=== PATIENT | female | born 1935 | race African-American/Black ===

== ENCOUNTER 2017-08-20 04:17 | Observation (INO) | payer MEDICARE, BC ==
[2017-08-20 04:58] LABS: #Lymphocytes 2.4 thou/uL (1.20-3.40); #Monocytes 0.7 thou/uL (0.11-0.59); #Neutrophils 5.3 thou/uL (1.40-6.50); %Basophils 0.2 % (0.0-1.0); %Eosinophils 0.5 % (0.0-10.0); %Lymphocytes 27.9 % (21.0-51.0); %Monocytes 8.7 % (0.0-10.0); %Neutrophils 62.6 % (42.0-75.0); Hemoglobin 14.7 g/dL (12.0-16.0); Mean Corpuscular HGB CONC 32.9 g/dL (32.0-36.0); Mean Corpuscular Hemoglobin 31.7 pg (27.0-31.0); Mean Corpuscular Volume 96.2 fl (81.0-99.0); Mean Platelet Volume 9.4 fL (7.4-10.4); Platelet Count 121 thou/uL (130-400); RBC Distribution Width 12.9 % (11.5-14.5); Red Blood Cell (RBC) Count 4.66 mill/uL (4.20-5.40); White Blood Cell (WBC) Count 8.4 thou/uL (4.8-10.8)
[2017-08-20 05:10] LABS: ALT (SGPT) 18 U/L (8-55); AST (SGOT) 31 U/L (5-34); Albumin 3.9 g/dL (3.4-4.8); Alkaline Phosphatase 45 U/L (40-150); Anion Gap 14 mmol/L (10-20); BUN (Urea Nitrogen) 10 mg/dL (9.8-20.1); Calc. Creatinine Clearance 0 mL/min (70-130); Calcium 9.9 mg/dL (7.8-10.44); Carbon Dioxide 29 mmol/L (23-31); Chloride 101 mmol/L (98-107); Estimated GFR-MDRD 57; Glucose 112 mg/dL (83-110); Potassium 3.8 mmol/L (3.5-5.1); Protein, Total 7.9 g/dL (6.0-8.3); Sodium 140 mmol/L (136-145)
[2017-08-20 05:12] LABS: Troponin I Less than 0.010 ng/mL (< 0.028)
[2017-08-20 07:57] VITALS: BMI 27.9
[2017-08-20] MEDS ORDERED: FLU VACC TS2017-18 (>65YR) 0.5 ML SYRINGE IM ONE (08:00)
[2017-08-20] MEDS ORDERED: Prevnar 13-Val Conj/PF 0.5 ML SYRINGE IM ONE (08:00)
[2017-08-20] MEDS ORDERED: Ondansetron ODT 4 MG TAB SL PRN (08:01)
[2017-08-20] MEDS ORDERED: Ondansetron HCl/PF 4 MG/2 ML Vial IVP PRN (08:01)
[2017-08-20] MEDS ORDERED: Acetaminophen 325 MG TAB PO PRN (08:01)
[2017-08-20 08:11] LABS: Troponin I 0.011 ng/mL (< 0.028)
--- NOTE | 2017-08-20 08:17 | RAD ---
PORTABLE UPRIGHT FRONTAL CHEST RADIOGRAPH: DATE: . COMPARISON: 05/31/15. HISTORY: Reflux, shortness of breath, flu-like symptoms. FINDINGS: There is atherosclerotic calcification of the aortic arch and increased linear interstitial density, stable. Stable dual-lead transvenous pacing device. No pneumothorax, pleural fluid, focal consolida tion, or alveolar edema. IMPRESSION: No acute findings. POS: ADELSO
[2017-08-20] MEDS ORDERED: Senokot 8.6 MG TAB PO PRN (12:24)
[2017-08-20] MEDS ORDERED: Bisacodyl 5 MG TAB PO PRN (12:24)
[2017-08-20 12:28] LABS: Troponin I Less than 0.010 ng/mL (< 0.028)
[2017-08-20] MEDS ORDERED: Nitroglycerin 0.4 MG TAB (25 Tab Bottle) SL PRN (12:30)
--- NOTE | 2017-08-20 13:05 | HP ---
DATE OF ADMISSION: 08/20/2017 CHIEF COMPLAINT: Chest pain. HISTORY OF PRESENT ILLNESS: This is an 82-year-old -Irish female with a known past medical history of coronary artery disease, status post stent [place] [address] Willams. Patient also had a pac emaker placement in [address] Metzger. 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 She has a known history of hypertension and history of coronary artery disease as described above. She was in her usual state of health until this morning. She noted muriel t she was having some cough and some shortness of breath and some chest tightness on the left precord ium and some soreness of her left shoulder going down the left arm. She initially tried to walk arou nd and pain was persistent and was actually intermittent pain in left upper arm. She decided to come to the ER for further evaluation. She has not seen Dr. Willams for some time. She usually goes for yearly checkup. She denies having any cough. She denies having any fever or any nasal congestion. She has no exposure to sick people recently. No history of abdominal pain, no nausea, no vomiting, n o diarrhea, no constipation. She rates her pain as a 5 out of 10 intensity radiating to the left jose manuel ulder. There are no relieving factors. There are no aggravating factors. The pain is more intermittent. PAST MEDICAL HISTORY: 1. Coronary artery disease status post stent in 2005. 2. History of pacemaker use for bradycardia. 3. Hypertension. 4. History of GERD. 5. History of hyperlipidemia. PAST SURGICAL HISTORY: 1. Pacemaker implantation in [address] Metzger and history of coronary artery stent placement in 2004. 2. Patient had total right knee replacement. SOCIAL HISTORY: The patient is not an nonsmoker. No history of alcohol, no history of illicit drug use. She lives independently and alone. FAMILY HISTORY: Patient has a family history of coronary artery disease in her dad, who was around 7 0 and mom who was also around 80, but otherwise no premature deaths in the family or no cancers in th e family. ALLERGIES: Patient has multiple allergies. BACITRACIN, CODEINE, IODINE, LATEX, NEOMYCIN, PENICILLIN , POLYMYXIN B. HOME MEDICATIONS: 1. Amlodipine 5 mg p.o. daily. 2. Aspirin 325 mg p.o. daily. 3. Calcium carbonate 1 tablet p.o. t.i.d. 4. Plavix 75 mg p.o. daily. 5. Donepezil. 6. Aricept 5 mg p.o. daily. 7. Hydrochlorothiazide 25 mg p.o. daily. 8. Metoprolol 100 mg p.o. daily. 9. Nitroglycerin 0.4 mg as needed for chest pain. 10. Pantoprazole 40 mg p.o. daily. 11. Potassium gluconate p.o. daily. 12. Pravastatin 40 mg p.o. daily. REVIEW OF SYSTEMS: All 12 systems are reviewed with the patient thoroughly and found to be negative at this time except the ones described in HPI. Constitutional: Weight loss or gain, sense of well-being, ability to conduct usual activities, exerc ise tolerance. Skin/Breast: Rash, itching, changes in hair growth or loss, nail changes, breast lumps, tenderness, swelling, nipple discharge. Eyes: Vision, double vision, tearing, blind spots, pain. ENT/Mouth: Headaches (location, time of onset, duration, precipitating factors), vertigo, lightheade dness, injury. Vision, double vision, tearing, blind spots, pain, nose bleeding, colds, obstruction, discharge, dental difficulties, gingival bleeding, dentures, neck stiffness, pain, tenderness, masses in thyroid or other areas Cardiovascular: Precordial pain, substernal distress, palpitations, syncope, dyspnea on exertion, or thopnea, nocturnal paroxysmal dyspnea, edema, cyanosis, hypertension, heart murmurs, varicosities, ph lebitis, claudication. Respiratory: Pain, shortness of breath, wheezing, stridor, cough, hemoptysis, fever or night sweats Gastrointestinal: Poor appetite, dysphagia, indigestion, abdominal pain, heartburn, eructation, naus ea, vomiting, hematemesis, jaundice, constipation, or diarrhea, abnormal stools (anali-colored, tarry, bloody, greasy, foul smelling), flatulence, hemorrhoids, recent changes in bowel habits. Genitourinary: Urgency, frequency, dysuria, nocturia, hematuria, polyuria, oliguria, unusual (or amber nge in) color of urine, stones, hesitancy, change in size of stream, dribbling, acute retention or in continence, libido, potency. Musculoskeletal: Pain, swelling, redness or heat of muscles or joints, limitation, of motion, muscul ar weakness, atrophy, cramps. Neurologic/Psychiatric: Convulsions, paralyses, tremor, incoordination, paraesthesias, difficulties with memory of speech, sensory or motor disturbances, or muscular coordination (ataxia, tremor), emot ional problems, anxiety, depression, previous psychiatric care, unusual perceptions, hallucinations. Allergy/Immunologic: Skin rash, anemia, bleeding tendency, polydipsia, polyuria, intolerance to heat or cold. PHYSICAL EXAMINATION: VITAL SIGNS: Blood pressure is 151/74, heart rate is 66, respirations 18, saturation 96%. GENERAL: The patient is moderately built and moderately nourished. She does not appear to be in acu te distress at this time. She is alert and oriented x3. HEENT: Atraumatic, normocephalic. PERRLA. Extraocular movements were intact. Oral mucosa is pink a nd moist. CARDIOVASCULAR: S1, S2 normal. No murmurs, rubs or gallops. LUNGS: Bilateral air entry was equal. No wheezing, no crackles. ABDOMEN: Soft, nontender, no guarding, no rebound tenderness. Bowel sounds normal. MUSCULOSKELETAL: No calf tenderness. No pedal edema, no joint tenderness, no joint swelling. SKIN: No cyanosis, no erythema, no rash, no pallor. CENTRAL NERVOUS SYSTEM: Cranial nerve examination II-XII intact. No focal deficits were noted. LYMPHATICS: No evidence of any generalized lymphadenopathy was noted. NECK: No thyromegaly. No JVD was noted. PSYCHIATRIC: No signs of suicidal ideation. No signs or marie was noted. LABORATORY DATA: Sodium 140, potassium 3.8, chloride 101, bicarb is 29, BUN is 10, creatinine 1.1, b lood sugar is 112, calcium is 9.9, BNP is 349.2. ASSESSMENT AND PLAN: 1. Acute chest pain, rule out myocardial infarction. 2. History of coronary artery disease status post stents. 3. Hypertension, uncontrolled. 4. Hyperlipidemia. 5. History of gastroesophageal reflux disease. 6. History of pacemaker. PLAN: 1. Plan is to monitor this patient with serial troponins q.6 hours. So far, patient had normal trop onins which were negative, but the most recent one was 0.011 and she has no chest pain right now. Sh e has elevated BNP of 349. I will closely monitor this patient and do 2D echo to look for any eviden ce of congestive heart failure contributing to her symptoms of shortness of breath and for the chest pain we will do a nuclear stress test tomorrow in the morning. 2. The patient has history of pacemaker. We will continue to monitor on the telemetry to look for a ny evidence of rhythm abnormalities. 3. Patient has a history of coronary artery disease. We will continue the patient on aspirin, beta cole and statin. 4. Patient has a history of hypertension, poorly controlled. I would start the patient on JOHN inhib itor at this time as she has elevated BNP and elevated blood pressures, need to rule out any evidence of congestive heart failure. The patient looks euvolemic. I would not start any Lasix at this time . We will wait for echocardiogram. 5. DVT prophylaxis, Lovenox 40 mg subcu daily. I spent 70 minutes on this patient.
--- NOTE | 2017-08-20 13:59 | RAD ---
FRONTAL RADIOGRAPH CHEST: Date: 08-20-17 Comparison: None. History: Neck pain radiating into the left shoulder. FINDINGS: There is prominent multilevel bilateral facet and uncal vertebral osteophyte formation, left greater than right, most prominent at C4-5, C5-6, and C6-7. Cervical spine is not fully evaluated as no open mouth odontoid view or lateral view is provided. Incompletely imaged transvenous pacing device is not ed. IMPRESSION: Multilevel degenerative change within the mid cervical spine as above, incompletely assessed on this exam. POS: ADELSO
[2017-08-20] MEDS: Calcium Carbonate + Vit D 1 TAB PO SCH ×2 (18:15→20:22)
[2017-08-20] MEDS: Famotidine/PF 20 mg/2ml Vial SLOW IVP SCH (20:23)
[2017-08-20] MEDS: Metoprolol Tartrate 25 MG TAB PO SCH (20:23)
[2017-08-21 06:23] LABS: #Lymphocytes 1.5 thou/uL (1.20-3.40); #Monocytes 0.7 thou/uL (0.11-0.59); #Neutrophils 4.7 thou/uL (1.40-6.50); %Basophils 0.4 % (0.0-1.0); %Eosinophils 0.5 % (0.0-10.0); %Monocytes 10.2 % (0.0-10.0); %Neutrophils 66.9 % (42.0-75.0); Hemoglobin 12.7 g/dL (12.0-16.0); Mean Corpuscular HGB CONC 32.7 g/dL (32.0-36.0); Mean Corpuscular Hemoglobin 31.4 pg (27.0-31.0); Mean Corpuscular Volume 95.9 fl (81.0-99.0); Mean Platelet Volume 9.2 fL (7.4-10.4); Platelet Count 133 thou/uL (130-400); RBC Distribution Width 12.8 % (11.5-14.5); Red Blood Cell (RBC) Count 4.05 mill/uL (4.20-5.40); White Blood Cell (WBC) Count 6.9 thou/uL (4.8-10.8)
[2017-08-21 06:36] LABS: Anion Gap 13 mmol/L (10-20); BUN (Urea Nitrogen) 9 mg/dL (9.8-20.1); Calc. Creatinine Clearance 58 mL/min (70-130); Calcium 9.3 mg/dL (7.8-10.44); Carbon Dioxide 24 mmol/L (23-31); Cardiac Risk 2.6 (Less than 4.5); Chloride 106 mmol/L (98-107); Cholesterol 98 mg/dl (< 200 Desired); Estimated GFR-MDRD 71; Glucose 96 mg/dL (83-110); HDL Cholesterol 37 mg/dL (>60 Neg Risk); LDL Cholesterol, Calculated 43 mg/dL; Potassium 3.7 mmol/L (3.5-5.1); Sodium 139 mmol/L (136-145); Triglycerides 91 mg/dL (Less than 150)
[2017-08-21] MEDS ORDERED: ADENOSINE 60 MG/20 ML VIAL ONE (08:14)
[2017-08-21] MEDS ORDERED: Lisinopril/Hydrochlorothiazide 10 mg/12.5 mg Tablet PO SCH (09:00)
--- NOTE | 2017-08-21 12:15 | NM ---
CARDIAC SPECT: HISTORY: An 82-year-old female with chest pain, coronary artery disease, hypertension, and dyslipidemia. TECHNIQUE: A myocardial perfusion scan was performed using the single isotope one day protocol with technetium 9 9m sestamibi, and 10 millicuries was injected intravenously for the rest exam, followed by 28 millicu marcy for the stress study. Pharmacologic stress with adenosine was monitored and interpreted by Dr. Phillips. FINDINGS: Homogeneous tracer distribution is seen in the myocardial segments on stress and rest images without fixed or reversible defects. GATED SPECT LVEF: 77% WALL MOTION EXAM: Normal. IMPRESSION: Normal myocardial perfusion scan. POS: ADELSO
[2017-08-21] MEDS: Aspirin 325 MG TAB PO SCH (12:28)
[2017-08-21] MEDS: Hydrochlorothiazide 25 MG TAB PO SCH (12:29)
[2017-08-21] MEDS: Potassium Chloride 8 MEQ TAB PO SCH (12:29)
[2017-08-21] MEDS: Amlodipine 10 MG TAB PO SCH (12:29)
[2017-08-21] MEDS: Donepezil HCl 5 MG TAB PO SCH (12:29)
[2017-08-21] MEDS: Clopidogrel Bisulfate 75 MG TAB PO SCH (12:30)
[2017-08-21] MEDS: Calcium Carbonate + Vit D 1 TAB PO SCH ×3 (12:30→21:57)
[2017-08-21] MEDS: Metoprolol Tartrate 25 MG TAB PO SCH ×2 (12:30→21:56)
[2017-08-21] MEDS: Famotidine/PF 20 mg/2ml Vial SLOW IVP SCH ×2 (12:31→21:58)
[2017-08-21] MEDS: Enoxaparin Sodium 40 MG/0.4 ML SYRINGE SC SCH (12:31)
[2017-08-21] MEDS ORDERED: Acetaminophen 325 MG TAB PO PRN (13:56)
--- NOTE | 2017-08-21 14:00 | PDOC.PN ---
- Subjective Encounter Start Date: 08/21/17 Encounter Start Time: 12:00 Patient is seen today, alert and oriented. but she is very weak and having low grade fever, pt lives alone and Daughter is concernned about her going home for risk of fall. - Objective Resuscitation Status: Resuscitation Status FULL:Full Resuscitation MAR Reviewed: Yes Vital Signs & Weight: Vital Signs (12 hours) Temp Pulse Resp BP BP Pulse Ox 08/21/17 13:54 72 150/65 H 08/21/17 12:31 78 08/21/17 11:59 99.4 F 78 18 188/87 H 08/21/17 07:51 99.5 F 70 16 167/75 H 95 08/21/17 07:50 99.5 F 70 16 08/21/17 03:10 98.9 F 61 16 135/61 95 Weight Weight 173 lb 14.4 oz I&O: 08/20/17 08/21/17 08/22/17 06:59 06:59 06:59 Intake Total 1730 Output Total 1000 150 Balance 730 -150 Result Diagrams: 08/21/17 06:05 08/21/17 06:05 Radiology Reviewed by me: Yes Phys Exam - Physical Examination HEENT: PERRLA, moist MMs Neck: no nodes, no JVD Respiratory: no wheezing, no rales, no rhonchi Cardiovascular: RRR, no significant murmur Gastrointestinal: soft, non-tender Musculoskeletal: edema present Neurological: non-focal, normal sensation Lymphatic: no nodes Psychiatric: normal affect, A&O x 3 Dx/Plan (1) Uncontrolled hypertension Code(s): I10 - ESSENTIAL (PRIMARY) HYPERTENSION Status: Acute (2) Chest pain Code(s): R07.9 - CHEST PAIN, UNSPECIFIED Status: Acute (3) Coronary artery disease Code(s): I25.10 - ATHSCL HEART DISEASE OF [place] CORONARY ARTERY W/O ANG PCTRS Status: Acute (4) Gastroesophageal reflux disease Code(s): K21.9 - GASTRO-ESOPHAGEAL REFLUX DISEASE WITHOUT ESOPHAGITIS Status: Acute - Plan cont current plan of care, plan discussed w/ family, PT/OT, respiratory therapy , incentive spirometry, DVT proph w/lovenox Plan: Katlyn is very weak to go home, pt had Stress today waiting on results, Echo is pending. Will continue to Monitor for her fevere, Respiratoary flu panel is sent. HTn is poorly controlled BP systolic 180, Will add Losartan as pt has couigh with lisinopril. H/o CAD, will closley monitor. Patient has Cervical spondylosis with osteophytes likely causing pain to left shoulder. cannot do MRI due to pacemaker. Review of Systems - Review of Systems Constitutional: fever, weakness, malaise Eyes: negative: Pain, Vision Change, Conjunctivae Inflammation, Eyelid Inflammation, Redness, Other ENT: negative: Ear Pain, Ear Discharge, Nose Pain, Nose Discharge, Nose Congestion, Mouth Pain, Mouth Swelling, Throat Pain, Throat Swelling, Other Respiratory: Cough, Shortness of Breath Cardiovascular: negative: chest pain, palpitations, orthopnea, paroxysmal nocturnal dyspnea, edema, light headedness, other Gastrointestinal: negative: Nausea, Vomiting, Abdominal Pain, Diarrhea, Constipation, Melena, Hematochezia, Other Genitourinary: negative: Dysuria, Frequency, Incontinence, Hematuria, Retention , Other Musculoskeletal: negative: Neck Pain, Shoulder Pain, Arm Pain, Back Pain, Hand Pain, Leg Pain, Foot Pain, Other Skin: negative: Rash, Lesions, Lex, Bruising, Other Neurological: Weakness. negative: Numbness, Incoordination, Change in Speech, Confusion, Seizures, Other - Medications/Allergies Allergies/Adverse Reactions: Allergies Allergy/AdvReac Type Severity Reaction Status Date / Time bacitracin Allergy Verified 02/22/13 11:08 [From Neosporin ([id number])] bacitracin zinc Allergy Verified 02/22/13 11:08 [From Neosporin ([id number])] codeine Allergy Verified 02/22/13 11:08 iodine Allergy Verified 02/22/13 11:08 latex Allergy Verified 02/22/13 11:08 neomycin sulfate Allergy Verified 02/22/13 11:08 [From Neosporin ([id number])] Penicillins Allergy Verified 02/22/13 11:08 polymyxin B Allergy Verified 02/22/13 11:08 [From Neosporin ([id number])] Sulfa (Sulfonamide Allergy Verified 02/22/13 11:08 Antibiotics) tetracycline [Tetracycline] Allergy Verified 02/22/13 11:08 Medications: Current Medications Acetaminophen (Tylenol) 650 mg PO Q4H PRN PRN Reason: Headache/Fever or Pain Amlodipine Besylate (Norvasc) 5 mg PO DAILY [facility] Last Admin: 08/21/17 12:29 Dose: 5 mg Aspirin (Aspirin) 325 mg PO DAILY [facility] Last Admin: 08/21/17 12:28 Dose: 325 mg Bisacodyl (Dulcolax) 10 mg PO DAILYPRN PRN PRN Reason: Constipation Calcium/Vitamin D (Caltrate 600 + Vit D) 1 tab PO TID [facility] Last Admin: 08/21/17 12:30 Dose: 1 tab Clopidogrel Bisulfate (Plavix) 75 mg PO QAM [facility] Last Admin: 08/21/17 12:30 Dose: 75 mg Donepezil HCl (Aricept) 5 mg PO DAILY [facility] Last Admin: 08/21/17 12:29 Dose: 5 mg Enoxaparin Sodium (Lovenox) 40 mg SC 0900 [facility] Last Admin: 08/21/17 12:31 Dose: 40 mg Famotidine (Pepcid) 20 mg SLOW IVP Q12HR [facility] Last Admin: 08/21/17 12:31 Dose: 20 mg Hydrochlorothiazide (Hydrochlorothiazide) 25 mg PO QAM [facility] Last Admin: 08/21/17 12:29 Dose: 25 mg Metoprolol Tartrate (Lopressor) 12.5 mg PO BID [facility] Last Admin: 08/21/17 12:30 Dose: 12.5 mg Nitroglycerin (Nitrostat) 0.4 mg SL Q5MIN PRN PRN Reason: Chest Pain Potassium Chloride (Slow-K 8 Meq) 8 meq PO DAILY [facility] Last Admin: 08/21/17 12:29 Dose: 8 meq Senna (Senokot) 2 tab PO HSPRN PRN PRN Reason: Constipation
[2017-08-21] MEDS: Oseltamivir 75 MG CAP PO SCH (21:57)
[2017-08-22] MEDS ORDERED: Losartan 25 MG TAB PO SCH (09:00)
[2017-08-22] MEDS: Oseltamivir 75 MG CAP PO SCH (09:11)
[2017-08-22] MEDS: Potassium Chloride 8 MEQ TAB PO SCH (09:12)
[2017-08-22] MEDS: Hydrochlorothiazide 25 MG TAB PO SCH (09:12)
[2017-08-22] MEDS: Donepezil HCl 5 MG TAB PO SCH (09:12)
[2017-08-22] MEDS: Calcium Carbonate + Vit D 1 TAB PO SCH (09:12)
[2017-08-22] MEDS: Famotidine/PF 20 mg/2ml Vial SLOW IVP SCH (09:12)
[2017-08-22] MEDS: Metoprolol Tartrate 25 MG TAB PO SCH (09:12)
[2017-08-22] MEDS: Aspirin 325 MG TAB PO SCH (09:12)
[2017-08-22] MEDS: Clopidogrel Bisulfate 75 MG TAB PO SCH (09:13)
[2017-08-22] MEDS: Amlodipine 10 MG TAB PO SCH (09:13)
[2017-08-22] MEDS: Enoxaparin Sodium 40 MG/0.4 ML SYRINGE SC SCH (09:13)
[2017-08-22 11:43] VITALS: BP 126/59; TEMP 98.1
--- NOTE | 2017-08-22 13:51 | DIS ---
DATE OF ADMISSION: 08/20/2017 DATE OF DISCHARGE: 08/22/2017 ADMITTING DIAGNOSIS: Acute chest pain. DISCHARGE DIAGNOSIS: Acute chest pain, noncardiac. SECONDARY DIAGNOSES: 1. Acute influenza A infection. 2. Uncontrolled hypertension. 3. History of pacemaker. 4. History of gastroesophageal reflux disease. 5. History of hyperlipidemia. HISTORY OF PRESENT ILLNESS AND HOSPITAL COURSE: In brief, this is an 82-year-old -[place] fe male with a known past medical history of coronary artery disease, status [place] st[place] [address] Willams and the patient also had a pacemaker [place] [address] Metzger. The patient has been emmanuel sely followed up by Dr. Willams and she started noticing persistent chest pain in the left pericardium going to the left arm and also shoulder pain. She was complaining of shoulder pain independent of t he chest pain. His x-ray of the cervical spine was done, which showed evidence of possible osteophyt es in the C5-C6 area, possibly contributing to the radicular pain. I suggested to the patient to see a Neurosurgery, but the patient did not want to get taken care of this at this time and she did not believe it could be coming from the cervical spine. The patient's chest pain was persistent and seri al troponins were negative. The patient was scheduled for a nuclear scan which came back negative. The following day, the patient was having fevers of 100.9 and markedly elevated blood pressures. Ini tial flu test was negative. Respiratory panel was sent for nucleic acid amplification test which did come back positive. The patient was started on Tamiflu 75 mg p.o. b.i.d. to be continued for 5 days . Empirically also started on levofloxacin 500 mg daily. The patient following day did fine. Fever was low grade. She was able to walk without any distress, breathe without any oxygen. Blood pressu re has been poorly controlled, so the patient was started on losartan and her blood pressures on the day of discharge was stable. The patient was discharged home in stable condition. Also discussed wi th the family, the daughter at the bedside. PHYSICAL EXAMINATION: VITAL SIGNS: On day of discharge, blood pressure 122/61, heart rate is 66, respiratory rate is 18, s aturation 92%. GENERAL: The patient is moderately built and moderately nourished, does not appear in acute distress . CARDIOVASCULAR: S1, S2 normal. No murmurs, rubs or gallops. LUNGS: Bilateral air entry was equal. No wheezing, no crackles. ABDOMEN: Soft, nontender, no guarding, no rebound tenderness. DISCHARGE MEDICATIONS: 1. Tamiflu 75 mg p.o. b.i.d. 2. Levofloxacin 500 mg p.o. daily, continue for 4 more days. 3. Losartan 50 mg p.o. daily. Other home medications, aspirin 81 mg daily, metoprolol 100 mg daily, pantoprazole 40 mg daily, prava statin 40 mg at bedtime, amlodipine 10 mg daily, calcium carbonate 1 tablet p.o. t.i.d., Plavix 75 mg , donepezil 5 mg daily, hydrochlorothiazide 25 mg daily, nitroglycerin 0.4 mg as needed and potassium gluconate. DISCHARGE INSTRUCTIONS: Continue activity as tolerated. Advised to follow up with primary care phys ician in 1 week. Advised to return to the ER if the patient develops persistent fever with worsening cough and congestion. Continue with low sodium diet. Advised to follow up with the Neurosurgery fo r her worsening cervical disk herniation. I spent 35 minutes.
--- NOTE | 2017-09-05 17:49 | EKG ---
Test Reason : Blood Pressure : / mmHG Vent. Rate : 075 BPM Atrial Rate : 075 BPM P-R Int : 000 ms QRS Dur : 080 ms QT Int : 488 ms P-R-T Axes : 000 -02 -50 degrees QTc Int : 544 ms Electronic atrial pacemaker Nonspecific ST and T wave abnormality , probably digitalis effect Prolonged QT Abnormal ECG Confirmed by FLORENCIA ROBLEDO D.O. ([id number]), digital editor ALICJA FATIMA ([id number]) on 09/05/2017 5:48:02 PM Referred By: VENKAT Confirmed By:FLORENCIA ROBLEDO D.O.
--- NOTE | 2017-11-20 21:07 | STRESS ---
Acquisition Time: 2017-08-21 10:27:36 Total Exercise Time: 00:04:09 Test Indications: CHEST PAIN Medications: Protocol: ZACK Max HR: 076 BPM 55% of Pred: 137 BPM Max BP: 140/060 mmHG Max Work Load: 1.0 METS RESTING ECG: NORMAL SINUS RHYTHM AT 71 BPM WITH EARLY R-WAVE TRANSITION, RARE PAC'S AND PVC'S; NON-SPECIFIC ST SEGMENT AND T-WAVE CHANGES SYMPTOMS: NONE NORMAL BP RESPONSE ECTOPY: RARE PAC'S AND PVC'S ECG STRESS: NO SIGNIFICANT CHANGES INTERPRETATION: INDETERMINATE ECG/AWAIT NUCLEAR IMAGES FOR DEFINITIVE DIAGNOSIS Confirmed by CEDRICK BLANCA MD ([id number]) on 11/20/2017 9:06:50 PM Referred By: MD Javed KHAN Confirmed By:CEDRICK BLANCA MD
== END 2017-08-22 12:47 | disposition home or self-care (01) ==
LOC: ERS 04:17 → 2SW 07:19
PROVIDERS: ADMIT Internal Medicine; ATTEND Internal Medicine
DX: R07.89 Other chest pain (principal); J10.1 Influenza due to other identified influenza virus with other respiratory manifestations; I10 Essential (primary) hypertension; K21.9 Gastro-esophageal reflux disease without esophagitis; E78.5 Hyperlipidemia, unspecified; I25.10 Atherosclerotic heart disease of native coronary artery without angina pectoris; Z88.5 Allergy status to narcotic agent; Z88.1 Allergy status to other antibiotic agents; Z88.0 Allergy status to penicillin; Z91.040 Latex allergy status; Z79.82 Long term (current) use of aspirin; Z79.899 Other long term (current) drug therapy; Z95.0 Presence of cardiac pacemaker; Z95.5 Presence of coronary angioplasty implant and graft; Z96.651 Presence of right artificial knee joint; Z82.49 Family history of ischemic heart disease and other diseases of the circulatory system
CPT/HCPCS: 71045; 72020; 78452; 80048; 80053; 80061; 82274; 82553; 83880; 84484 ×2; 85025 ×2; 87633; 87804 ×2; 90670; 93005; 93017; 93306; 94760; 96361; 96372 ×2; 96374; 96376 ×2; 97139 ×3; 97530; 97535; 99285; A9500; G0008; G0009; G0378 ×2; G8978; G8979; G8990; G8991; Q2036; 36415; 90471; 90682; 96360; J0153; J1650; S0028

== ENCOUNTER 2017-11-03 09:50 | Observation (INO) | payer MEDICARE, BC ==
[2017-11-03 10:38] LABS: #Basophils 0.1 thou/uL (0.0-0.2); #Eosinphils 0.1 thou/uL (0.0-0.7); #Lymphocytes 1.7 thou/uL (1.20-3.40); #Monocytes 0.5 thou/uL (0.11-0.59); #Neutrophils 3.6 thou/uL (1.40-6.50); %Basophils 1.5 % (0.0-1.0); %Eosinophils 1.7 % (0.0-10.0); %Lymphocytes 28.3 % (21.0-51.0); %Monocytes 8.5 % (0.0-10.0); Hemoglobin 14.1 g/dL (12.0-16.0); Mean Corpuscular HGB CONC 32.7 g/dL (32.0-36.0); Mean Corpuscular Hemoglobin 30.8 pg (27.0-31.0); Mean Corpuscular Volume 94.4 fl (81.0-99.0); Mean Platelet Volume 9.7 fL (7.4-10.4); Platelet Count 130 thou/uL (130-400); RBC Distribution Width 13.6 % (11.5-14.5); Red Blood Cell (RBC) Count 4.58 mill/uL (4.20-5.40); White Blood Cell (WBC) Count 6.1 thou/uL (4.8-10.8)
[2017-11-03 11:02] LABS: ALT (SGPT) 18 U/L (8-55); AST (SGOT) 25 U/L (5-34); Alkaline Phosphatase 56 U/L (40-150); Anion Gap 11 mmol/L (10-20); BUN (Urea Nitrogen) 10 mg/dL (9.8-20.1); Calc. Creatinine Clearance 0 mL/min (70-130); Calcium 9.8 mg/dL (7.8-10.44); Carbon Dioxide 29 mmol/L (23-31); Chloride 107 mmol/L (98-107); Estimated GFR-MDRD 64; Globulin 3.9 g/dL (2.4-3.5); Glucose 93 mg/dL (83-110); Potassium 3.7 mmol/L (3.5-5.1); Protein, Total 7.9 g/dL (6.0-8.3); Sodium 143 mmol/L (136-145)
[2017-11-03 11:05] LABS: CKMB 5.6 ng/mL (0-6.6); Troponin I Less than 0.010 ng/mL (< 0.028)
[2017-11-03] MEDS ORDERED: Nitroglycerin 2% Ointment 1 INCH/1 GM Packet ONE (11:38)
[2017-11-03] MEDS ORDERED: Pantoprazole 40 MG VIAL ONE (11:38)
[2017-11-03 11:50] LABS: Bilirubin Negative (Negative); Blood, Urine Negative (Negative); Clarity CLEAR (Clear); Glucose, Urine (Dipstick) Negative (Negative); Leukocyte Negative (Negative); Nitrite Negative (Negative); Protein, Urine (Dipstick) Negative (Neg-Trace); Specific Gravity, Urine 1.012 (1.002-1.036); pH, Urine 7.5 (5.0-9.0)
--- NOTE | 2017-11-03 11:59 | RAD ---
RADIOGRAPH CHEST 1 VIEW: Date: 11/03/17. Time: 11:11 a.m. HISTORY: An 82-year-old female with hypertension. COMPARISON: 08/20/17. FINDINGS: Left subclavian dual-lead pacemaker. Magnification of the cardiac shadow. Mild prominence of the up per lobe pulmonary vasculature. Atherosclerotic calcification, ectasia, and tortuosity of thoracic a michelle. No abbey pulmonary alveolar edema, airspace opacity, or pneumothorax. No interval change. IMPRESSION: 1. No definite acute pulmonary findings. 2. Atherosclerosis and ectasia of thoracic aorta. 3. Pacemaker. NELI [] POS: ADELSO
[2017-11-03] MEDS ORDERED: Ondansetron HCl/PF 4 MG/2 ML Vial IVP PRN (13:04)
[2017-11-03] MEDS ORDERED: Acetaminophen 500 MG TAB PO PRN (13:04)
[2017-11-03] MEDS ORDERED: traMADol HCl 50 MG TAB PO PRN (13:04)
[2017-11-03] MEDS ORDERED: hydrALAZINE 20 MG/ML VIAL SLOW IVP PRN (13:04)
[2017-11-03] MEDS ORDERED: Senokot 8.6 MG TAB PO PRN (13:10)
[2017-11-03] MEDS ORDERED: Nitroglycerin 0.4 MG TAB (25 Tab Bottle) SL PRN (13:10)
--- NOTE | 2017-11-03 13:43 | HP ---
DATE OF ADMISSION: 11/03/2017 CHIEF COMPLAINT: Hypertensive urgency. HISTORY OF PRESENT ILLNESS: An 82-year-old female who was seen in the neurologist's office earlier today due to dizziness, weakness, and recurrent falls. The patient's blood pressure was found to be in the 190s-200s and she was transferred over to the emergency room. Patient's blood pressure in the ER has also been in the 190s-200s. The patient states that she last saw her primary care doctor a few months ago and states that at that point in time she was told everything was normal. Patient cannot recall the home medications that she takes, but states that she does have a list at home. The patient apparently also states that she was told by neurologist that she may have Alzheimer's and is currently being worked up for this diagnosis. The patient sees Dr. Willams for Cardiology, Dr. Abreu for Neurology and Dr. Solorio for primary care. The patient states that in the last few weeks, she had developed some dizziness and had gone to see the neurologist for this complaint. Patient states that usually her blood pressure tends to run between 130s-150s. Patient otherwise denies having had high episodes of blood pressure in the 190s-200s that she experienced earlier today. Patient denies any alleviating or aggravating factors. Denies any nausea, vomiting, diarrhea, constipation, fevers, chills, shortness of breath. The patient did admit to some chest pain discomfort earlier during the day in the ER which was improved upon receiving some nitrogen paste on her chest. The patient is seen and examined. Daughter at bedside. All questions answered. ALLERGIES: To BACITRACIN, ZINC, CODEINE, IODINE, LATEX. MEDICATIONS: See MAR. PAST MEDICAL HISTORY: Pertinent for coronary artery disease, gastroesophageal reflux disease, uncontrolled hypertension as well as potential Alzheimer's. FAMILY HISTORY: Positive for hypertension, stroke, diabetes, and cardiovascular disease. SOCIAL HISTORY: Denies any smoking or drinking. REVIEW OF SYSTEMS: Twelve point review of systems performed. Pertinent positives in the HPI, otherwise negative. PHYSICAL EXAMINATION: VITAL SIGNS: Blood pressure 186/90, heart rate of 80, temperature of 98, respiratory rate 12. GENERAL: No acute distress, lying in bed. HEENT: PERRLA, EOMI, Oral cavity moist and pink. NECK: Supple, palpable, mobile, nontender thyroid. LUNGS: Aerating well. No respiratory distress. Clear to auscultation bilaterally. HEART: Regular rate and rhythm. S1 and S2. No murmurs, rubs or gallops appreciated. ABDOMEN: Positive bowel sounds, soft, nontender. NEUROLOGIC: Cranial nerves II-XII intact. No loss of sensory function. MUSCULOSKELETAL: 2+ peripheral pulses. No pitting edema noted. LABORATORY DATA: CBC normal. CMP normal. UA normal. ASSESSMENT AND PLAN: 1. Hypertensive urgency. 2. Chest pain. 3. Neurological findings of dizziness and weakness. 4. Coronary artery disease. 5. Hyperlipidemia. At this point in time, we will admit to Internal Medicine Team, admission with tele monitoring. We will also consult Neurology and Cardiology. Will obtain troponins x3. We will also get CBC and BMP. Also obtain a TSH level and resume her home medications withhold parameters. We will also give the patient p.r.n. medications for BP control, pain control and nausea. Gastrointestinal and deep venous thrombosis prophylaxis with sequential compression device and Protonix. Code status remains a FULL CODE for now. Case and plan discussed with the patient and daughter at length. They understand and agree with this plan. MARTA
[2017-11-03 14:46] LABS: Troponin I Less than 0.010 ng/mL (< 0.028)
[2017-11-03 14:47] VITALS: BMI 27.4
[2017-11-03] MEDS: Calcium Carbonate + Vit D 1 TAB PO SCH ×2 (15:08→21:00)
[2017-11-03 17:44] LABS: Troponin I Less than 0.010 ng/mL (< 0.028)
[2017-11-03 20:36] LABS: Troponin I Less than 0.010 ng/mL (< 0.028)
[2017-11-03] MEDS ORDERED: Pravastatin Sodium 40 MG TAB PO SCH (21:00)
[2017-11-03] MEDS ORDERED: Atorvastatin Calcium 10 MG TAB PO SCH (21:00)
--- NOTE | 2017-11-03 23:23 | CON ---
DATE OF CONSULTATION: 11/03/2017 CONSULTING PHYSICIAN: Hospitalist Service. IMPRESSION: This patient had transient episode of dizziness and ataxia in the midst of relative elev ation of her blood pressure. She attributes this to some persistent epigastric discomfort that prece ded the event. Her symptoms have cleared. She has been seen by Dr. Abreu in the office for evaluatio n of some memory decline. She has a past history of hypertension, hyperlipidemia and coronary artery disease. Since admission, she had routine laboratory work done, which was unremarkable. Her EKG sh owed paced rhythm. She feels like she is back to her baseline. Her exam was nonfocal. Her gait was steady. There is no nystagmus on exam. I do not see any acute neurologic issues. The patient can be discharged to be followed up with Dr. Marycarmen calzada.
--- NOTE | 2017-11-04 00:43 | CON ---
DATE OF CONSULTATION: 11/03/2017 HISTORY: Kiley Zhong is a pleasant 82-year-old black female who has followed Dr. Willams for many years. In 2007, she underwent placement of a Taxus drug- coated stent 3.5 x 24 mm in the LAD, postdilated with a 4.0 mm balloon. In 2012, she underwent repeat catheterization which revealed the stent to be widely patent. There was some proximal LAD disease and she underwent flow wire of the LAD and was found to have a fractional flow reserve of 0.96. She also had bradycardia at that time and I placed a dual-chamber pacemaker. I have seen her on a yearly basis since then with continued good function of the pacemaker. In 01/2017, she was complaining of some chest discomfort and she underwent Lexiscan Cardiolite testing. This revealed no evidence of ischemia. Since that time, she states that she continues to intermittently have chest discomfort mostly when she is in bed. Approximately 2 times per month, she has this discomfort, has to get up and take Maalox which promptly relieves the discomfort. Today, she is being seen by Neurology for dizziness and weakness and was found to have blood pressure of 190 to 200 systolic and was sent to the emergency room. She did complain of some chest pressure in the emergency room, which apparently resolved with nitro paste topically. At the present time, she has no complaints. PAST MEDICAL HISTORY: Hypertension, hypercholesterolemia, coronary artery disease, GERD. She is being evaluated for possible Alzheimer disease. MEDICATIONS: Aspirin 325 daily, Aricept 10 mg daily, metoprolol 100 XL daily, Protonix 40 daily, potassium 99 mcg daily, pravastatin 40 at bedtime. Also, when she was seen in 02/2017, she was on amlodipine 10 mg/one-half tablet daily ; however, that is not on her home medication list. ALLERGIES: Include POLYMYXIN, SULFA, IODINE, CODEINE, LASIX, NEOSPORIN, BACITRACIN, NEOMYCIN, PENICILLIN and POLYCILLIN. SOCIAL HISTORY: She does not smoke or drink. REVIEW OF SYSTEMS: Ten-point review of systems otherwise is unremarkable. PHYSICAL EXAMINATION: VITAL SIGNS: Blood pressure is down to 152/56, pulse 61. HEENT: PERRL. NECK: Supple. CHEST: Clear. CARDIAC: S1 and S2 are normal without any S3, S4 or murmurs. ABDOMEN: Normal bowel sounds, without tenderness, organomegaly. EXTREMITIES: Revealed no clubbing, cyanosis or edema. NEUROLOGIC: Grossly intact. LABORATORY: EKG reveals atrial and ventricular pacing with what appears to be some fusion complexes on a ventricular pacing. Hemoglobin 14.1, hematocrit 43.3 , white count 6100, platelets 130,000. Sodium 143, potassium 3.7, chloride 107 , carbon dioxide 29, BUN 10, creatinine 1.0. Cardiac enzymes are negative x3. It is of note that in 08/2017 cholesterol 98, triglycerides 91, HDL 37, LDL 43. TSH is normal. IMPRESSION: 1. Probable noncardiac chest pain with pain lasting approximately 30 minutes with totally normal cardiac enzymes. 2. Gastroesophageal reflux disease with chest pain relieved promptly with liquid Maalox. 3. History of coronary artery disease with stent placement in the LAD in 2007. In 2012, the stent was patent. 4. Normal Cardiolite in the office in 02/2017. 5. Status post pacemaker placement. 6. Hypertension. 7. Hypercholesterolemia under good control. 8. Possible Alzheimer's. PLAN: The patient will continue to be observed and blood pressure treated. Dr. Willams will return in the morning to assume her care. MARTA
[2017-11-04 05:52] LABS: #Basophils 0.1 thou/uL (0.0-0.2); #Eosinphils 0.1 thou/uL (0.0-0.7); #Lymphocytes 1.4 thou/uL (1.20-3.40); #Monocytes 0.5 thou/uL (0.11-0.59); #Neutrophils 3.3 thou/uL (1.40-6.50); %Basophils 1.1 % (0.0-1.0); %Monocytes 9.9 % (0.0-10.0); %Neutrophils 61.1 % (42.0-75.0); Hemoglobin 12.9 g/dL (12.0-16.0); Mean Corpuscular HGB CONC 32.6 g/dL (32.0-36.0); Mean Corpuscular Hemoglobin 30.7 pg (27.0-31.0); Mean Corpuscular Volume 94.4 fl (81.0-99.0); Mean Platelet Volume 9.8 fL (7.4-10.4); Platelet Count 126 thou/uL (130-400); RBC Distribution Width 13.5 % (11.5-14.5); Red Blood Cell (RBC) Count 4.21 mill/uL (4.20-5.40); White Blood Cell (WBC) Count 5.4 thou/uL (4.8-10.8)
[2017-11-04 06:11] LABS: Anion Gap 9 mmol/L (10-20); BUN (Urea Nitrogen) 8 mg/dL (9.8-20.1); Calc. Creatinine Clearance 62 mL/min (70-130); Calcium 9.3 mg/dL (7.8-10.44); Carbon Dioxide 30 mmol/L (23-31); Chloride 105 mmol/L (98-107); Estimated GFR-MDRD 78; Glucose 81 mg/dL (83-110); Potassium 3.6 mmol/L (3.5-5.1); Sodium 140 mmol/L (136-145)
[2017-11-04 08:03] LABS: Troponin I Less than 0.010 ng/mL (< 0.028)
[2017-11-04] MEDS ORDERED: Aspirin 325 MG TAB PO SCH (09:00)
[2017-11-04] MEDS ORDERED: Clopidogrel Bisulfate 75 MG TAB PO SCH (09:00)
[2017-11-04] MEDS ORDERED: Amlodipine 10 MG TAB PO SCH ×2 (09:00)
[2017-11-04] MEDS ORDERED: Hydrochlorothiazide 25 MG TAB PO SCH (09:00)
[2017-11-04] MEDS ORDERED: Pantoprazole 40 MG GRANULES PACKET PO SCH (09:00)
[2017-11-04] MEDS ORDERED: Amlodipine 5 MG TAB PO SCH ×2 (09:00)
[2017-11-04] MEDS ORDERED: Losartan 25 MG TAB PO SCH ×2 (09:00)
[2017-11-04] MEDS ORDERED: Donepezil HCl 5 MG TAB PO SCH (09:00)
[2017-11-04] MEDS: Calcium Carbonate + Vit D 1 TAB PO SCH (09:57)
--- NOTE | 2017-11-04 10:14 | ULT ---
BILATERAL CAROTID DUPLEX ULTRASOUND: HISTORY: Dizziness. TECHNIQUE: Solis scale, color flow, and spectral Doppler imaging of the extracranial carotid artery systems is pe rformed bilaterally. FINDINGS: There is plaque formation on either side. The peak systolic velocity in the right ICA measures 73 cm/s with an end-diastolic velocity of 17 cm/ s and a systolic ratio of 1.11. The peak systolic velocity in the left ICA measures 63 cm/s with an end-diastolic velocity of 23 cm/s and a systolic ratio of 0.85. Flow in both vertebral arteries remains antegrade. Incidental note is made of multiple nodules in the thyroid gland. IMPRESSION: 1. No evidence of hemodynamically significant stenosis. 2. Thyroid nodules. Dedicated thyroid ultrasound would be helpful. POS: OFF
--- NOTE | 2017-11-04 11:59 | DIS ---
DATE OF ADMISSION: 11/03/2017 DATE OF DISCHARGE: 11/04/2017 ADMITTING DIAGNOSES: Hypertensive urgency, chest pain, dizziness, weakness, coronary artery disease, and hyperlipidemia. DISCHARGE DIAGNOSES: Hypertension, stabilized chest pain resolved, dizziness, weakness resolved, cor onary artery disease stable and hyperlipidemia, stable. HOSPITAL COURSE: The patient is an 82-year-old female admitted after having seen a neurologist. The patient apparently was found to have blood pressure systolic in the 190s-200s at her neurologist's o ffice and was sent to the ER for evaluation. The patient was found to have blood pressures above 200 in the ER as well and was started on medical management, admitted to the Internal Medicine Team to [facility] observation floor. Patient was evaluated inpatient by Cardiology as well as Neurology and [facility] blood pressure was stabilized at 160s after adjusting her home blood pressure medications. The [facility] also had a carotid artery ultrasound done which showed no evidence of hemodynamic significance a nd was cleared by Neurology, Cardiology as well as Internal Medicine prior to discharge. At the [facility] in time of discharge, patient was stable. Denied any nausea, vomiting, diarrhea, constipation, orquidea st pain, fevers, or shortness of breath. The patient was given prescription for Norvasc 10, hydrochl orothiazide 25, lisinopril 100 to be taken daily and wants to resume her metoprolol 100 twice a day. The patient and her daughter were advised to hold her blood pressure medication for systolic blood p ressure was less than 120 or if her heart rate dropped less than 60, she was to hold her metoprolol. DISPOSITION: Home. MEDICATIONS: See MAR. Follow up with PCP in 5-10 days. DIET: Low fat, low calorie, high fiber. ACTIVITY: As tolerated with assistance if needed. CONDITION: Stable. PROGNOSIS: Good. Case and plan discussed with the patient and daughter at length. They understand and agree with this plan.
[2017-11-04 12:27] VITALS: TEMP 97.7
[2017-11-04 12:28] VITALS: BP 142/79
--- NOTE | 2017-11-12 15:02 | EKG ---
Test Reason : WEAKNESS Blood Pressure : / mmHG Vent. Rate : 069 BPM Atrial Rate : 069 BPM P-R Int : 194 ms QRS Dur : 072 ms QT Int : 408 ms P-R-T Axes : 000 008 -54 degrees QTc Int : 437 ms Sinus rhythm with Premature supraventricular complexes Abnormal ECG Confirmed by MARCEL GIBBS ([id number]), web editor ALICJA FATIMA ([id number]) on 11/12/2017 3:00:19 PM Referred By: SAI Confirmed By:MARCEL GIBBS
--- NOTE | 2017-11-12 15:06 | EKG ---
Test Reason : CP Blood Pressure : / mmHG Vent. Rate : 062 BPM Atrial Rate : 055 BPM P-R Int : 182 ms QRS Dur : 104 ms QT Int : 446 ms P-R-T Axes : 047 -16 -34 degrees QTc Int : 452 ms AV dual-paced rhythm with occasional ventricular-paced complexes Abnormal ECG Confirmed by MARCEL GIBBS ([id number]), staff editor ALICJA FATIMA ([id number]) on 11/12/2017 3:06:06 PM Referred By: SAI Confirmed By:MARCEL GIBBS
== END 2017-11-04 13:46 | disposition home or self-care (01) ==
LOC: ERS 09:50 → 2SW 12:07
PROVIDERS: ADMIT Internal Medicine; ATTEND Internal Medicine
DX: I10 Essential (primary) hypertension (principal); R07.89 Other chest pain; R42 Dizziness and giddiness; R53.1 Weakness; I25.10 Atherosclerotic heart disease of native coronary artery without angina pectoris; E78.5 Hyperlipidemia, unspecified; E78.00 Pure hypercholesterolemia, unspecified; Z79.82 Long term (current) use of aspirin; Z79.899 Other long term (current) drug therapy; Z88.5 Allergy status to narcotic agent; Z88.8 Allergy status to other drugs, medicaments and biological substances; Z88.1 Allergy status to other antibiotic agents; Z91.041 Radiographic dye allergy status; Z91.040 Latex allergy status; Z88.0 Allergy status to penicillin; Z88.2 Allergy status to sulfonamides; Z95.0 Presence of cardiac pacemaker; Z91.81 History of falling
CPT/HCPCS: 71045; 80048; 81003; 82553; 84484 ×3; 85025; 93005; 93880; 96374; 99285; G0378; 36415; 80053; 84443; A4216; C9113

== ENCOUNTER 2018-06-29 12:42 | Outpatient (CLI) | payer MEDICARE, BC ==
[2018-06-29 13:53] LABS: #Basophils 0.1 thou/uL (0.0-0.2); #Eosinphils 0.1 thou/uL (0.0-0.7); #Lymphocytes 1.8 thou/uL (1.20-3.40); #Monocytes 0.5 thou/uL (0.11-0.59); #Neutrophils 3.4 thou/uL (1.40-6.50); %Basophils 1.7 % (0.0-1.0); %Eosinophils 1.6 % (0.0-10.0); %Lymphocytes 30.2 % (21.0-51.0); %Monocytes 8.6 % (0.0-10.0); %Neutrophils 57.9 % (42.0-75.0); Hemoglobin 14.2 g/dL (12.0-16.0); Mean Corpuscular HGB CONC 32.3 g/dL (32.0-36.0); Mean Corpuscular Volume 93.1 fL (78.0-98.0); Mean Platelet Volume 8.6 fL (7.4-10.4); Platelet Count 171 thou/uL (130-400); RBC Distribution Width 12.6 % (11.5-14.5); Red Blood Cell (RBC) Count 4.72 mill/uL (4.20-5.40); White Blood Cell (WBC) Count 5.9 thou/uL (4.8-10.8)
[2018-06-29 14:15] LABS: ALT (SGPT) 15 U/L (8-55); AST (SGOT) 22 U/L (5-34); Albumin 4.2 g/dL (3.4-4.8); Alkaline Phosphatase 97 U/L (40-150); Anion Gap 12 mmol/L (10-20); BUN (Urea Nitrogen) 12 mg/dL (9.8-20.1); Bilirubin, Total 1.2 mg/dL (0.2-1.2); Calc. Creatinine Clearance 0 mL/min (70-130); Calcium 10.1 mg/dL (7.8-10.44); Carbon Dioxide 28 mmol/L (23-31); Chloride 103 mmol/L (98-107); Estimated GFR-MDRD 60; Globulin 3.9 g/dL (2.4-3.5); Glucose 88 mg/dL (83-110); Potassium 3.6 mmol/L (3.5-5.1); Protein, Total 8.1 g/dL (6.0-8.3); Sodium 139 mmol/L (136-145)
== END 2018-06-29 12:43 | disposition home or self-care (01) ==
LOC: LABBT 12:42
PROVIDERS: ATTEND Internal Medicine Cardiovascular Disease
DX: Z01.812 Encounter for preprocedural laboratory examination (principal)
CPT/HCPCS: 80053; 85025

== ENCOUNTER 2018-07-06 05:47 | Day surgery (SDC) | payer MEDICARE, BC ==
[2018-06-29 13:13] VITALS: BMI 27.3
[2018-07-06] MEDS ORDERED: Diazepam 5 MG TAB ONE (06:03)
[2018-07-06] MEDS ORDERED: Lidocaine 1% (PF) 30 ML VIAL ONE (06:33)
[2018-07-06] MEDS ORDERED: Fentanyl 100 MCG/2 ML VIAL ONE (07:38)
[2018-07-06] MEDS ORDERED: Midazolam HCl 2 mg/2 ml Vial ONE (07:43)
[2018-07-06] MEDS ORDERED: Iopamidol 370 76% 100 ML VIAL ONE (10:13)
== END 2018-07-06 14:03 | disposition home or self-care (01) ==
LOC: EEVIPCON → CCL 05:47
PROVIDERS: ATTEND Internal Medicine Cardiovascular Disease
PROC: 4A023N7 Measurement of Cardiac Sampling and Pressure, Left Heart, Percutaneous Approach (ICD-10-PCS; principal; 2018-07-06)
PROC: B2111ZZ Fluoroscopy of Multiple Coronary Arteries using Low Osmolar Contrast (ICD-10-PCS; 2018-07-06)
DX: I25.10 Atherosclerotic heart disease of native coronary artery without angina pectoris (principal); K21.9 Gastro-esophageal reflux disease without esophagitis; I48.0 Paroxysmal atrial fibrillation; E78.00 Pure hypercholesterolemia, unspecified; I10 Essential (primary) hypertension; Z79.82 Long term (current) use of aspirin; Z79.899 Other long term (current) drug therapy; Z88.0 Allergy status to penicillin; Z88.1 Allergy status to other antibiotic agents; Z88.2 Allergy status to sulfonamides; Z88.5 Allergy status to narcotic agent; Z91.040 Latex allergy status; Z91.041 Radiographic dye allergy status; Z95.5 Presence of coronary angioplasty implant and graft
CPT/HCPCS: 76942; 93458; 99152; 99153; C1769; J1644; J2001; J2250; J3010

== ENCOUNTER 2023-04-30 08:57 | Inpatient (IN) | payer BC, MEDICARE ==
[2023-04-30 10:18] LABS: #Monocytes 0.4 thou/uL (0.11-0.59); %Basophils 0.2 % (0.0-1.0); %Eosinophils 0.2 % (0.0-10.0); %Lymphocytes 23.9 % (21.0-51.0); %Monocytes 8.5 % (0.0-10.0); %Neutrophils 66.8 % (42.0-75.0); Hematocrit 43.1 % (36.0-47.0); Hemoglobin 14.1 g/dL (12.0-16.0); Mean Corpuscular HGB CONC 32.7 g/dL (32.0-36.0); Mean Corpuscular Volume 91.7 fl (78.0-98.0); Mean Platelet Volume 11.9 fL (7.4-10.4); Platelet Count 165 10x3/uL (130-400); RBC Distribution Width 16.2 % (11.5-14.5); White Blood Cell (WBC) Count 4.5 10x3/uL (4.8-10.8)
[2023-04-30 10:26] LABS: Bacteria/HPF None Seen HPF (None Seen); Bilirubin Negative (Negative); Blood, Urine Negative (Negative); CAUTI Indications for Culture Alt mental st,lethar; Clarity Clear (Clear); Glucose, Urine (Dipstick) Normal (Negative); Ketone, Urine Negative (Negative); Leukocyte Negative Leu/uL (Negative); Nitrite Negative (Negative); Protein, Urine (Dipstick) Negative (Neg-Trace); RBC/HPF 0-3 HPF (0-3); Specific Gravity, Urine 1.007 (1.002-1.036); Squamous Epithelial 0-3 HPF (0-3); Urobilinogen Normal mg/dL (Less than 2); WBC/HPF 0-3 HPF (0-3); pH, Urine 6.5 (5.0-9.0)
[2023-04-30 10:32] LABS: Urine Culture Reflex No No
[2023-04-30 10:38] LABS: INR-International Normal Ratio 1.2; PTT 32.5 sec (22.9-36.1); Prothrombin Time 15.4 sec (12.0-14.7)
[2023-04-30 10:46] LABS: Troponin I 0.017 ng/mL (< 0.028)
[2023-04-30] MEDS ORDERED: Acetaminophen 500 MG TAB ONE (11:07)
[2023-04-30 12:52] LABS: ALT (SGPT) 26 U/L (8-55); AST (SGOT) 51 U/L (5-34); Albumin 3.3 g/dL (3.4-4.8); Alkaline Phosphatase 74 U/L (40-110); Anion Gap 16 mmol/L (10-20); BUN (Urea Nitrogen) 9 mg/dL (9.8-20.1); Calc. Creatinine Clearance 0 mL/min (70-130); Calcium 9.7 mg/dL (7.8-10.44); Carbon Dioxide 21 mmol/L (23-31); Chloride 106 mmol/L (98-107); Estimated GFR 70; Glucose 73 mg/dL (83-110); Potassium 3.4 mmol/L (3.5-5.1); Protein, Total 8.3 g/dL (5.8-8.1); Sodium 140 mmol/L (136-145)
[2023-04-30 12:53] LABS: CK (CPK) 241 U/L (29-168)
[2023-04-30] MEDS ORDERED: cefTRIAXone (ROCEPHIN) 1 GM VIAL ONE (13:34)
[2023-04-30] MEDS ORDERED: Ondansetron PF 4 MG/2 ML Vial IVP PRN (15:14)
[2023-04-30] MEDS ORDERED: Senokot S 8.6-50 MG TAB PO PRN (15:14)
[2023-04-30] MEDS ORDERED: Acetaminophen 325 MG TAB PO PRN (15:14)
[2023-04-30] MEDS ORDERED: Bisacodyl 5 MG TAB PO PRN (15:14)
[2023-04-30 16:57] LABS: SARS-CoV-2 NAA Rapid Test DETECTED (NotDetected)
[2023-04-30 17:59] VITALS: BMI 21.6
[2023-04-30] MEDS ORDERED: NIRMATRELVIR 150 MG/RITONAVIR 100 MG PO SCH (21:00)
[2023-04-30] MEDS: ALPRAZolam 0.25 MG TAB PO SCH (21:06)
[2023-04-30] MEDS: Atorvastatin Calcium 10 MG TAB PO SCH (21:06)
[2023-04-30] MEDS: Azithromycin 500 MG in Sodium Chloride 0.9% 250 ML 250 ML IVPB SCH (21:06)
[2023-04-30] MEDS: QUEtiapine 25 MG TAB PO SCH (21:06)
[2023-05-01 04:51] LABS: #Monocytes 0.6 thou/uL (0.11-0.59); %Basophils 0.2 % (0.0-1.0); %Eosinophils 0.2 % (0.0-10.0); %Lymphocytes 25.8 % (21.0-51.0); %Monocytes 11.5 % (0.0-10.0); %Neutrophils 62.1 % (42.0-75.0); Hematocrit 39.4 % (36.0-47.0); Hemoglobin 12.5 g/dL (12.0-16.0); Mean Corpuscular HGB CONC 31.7 g/dL (32.0-36.0); Mean Corpuscular Hemoglobin 29.8 pg (27.0-31.0); Mean Corpuscular Volume 93.8 fl (78.0-98.0); Mean Platelet Volume 11.3 fL (7.4-10.4); RBC Distribution Width 16.4 % (11.5-14.5); White Blood Cell (WBC) Count 4.9 10x3/uL (4.8-10.8)
[2023-05-01 05:08] LABS: Platelet Count 137 10x3/uL (130-400)
[2023-05-01 05:14] LABS: Anion Gap 13 mmol/L (10-20); BUN (Urea Nitrogen) 8 mg/dL (9.8-20.1); Calc. Creatinine Clearance 44 mL/min (70-130); Carbon Dioxide 22 mmol/L (23-31); Chloride 106 mmol/L (98-107); Estimated GFR 72; Glucose 71 mg/dL (83-110); Potassium 3.4 mmol/L (3.5-5.1); Sodium 138 mmol/L (136-145)
[2023-05-01] MEDS: ALPRAZolam 0.25 MG TAB PO SCH ×2 (08:27→20:01)
[2023-05-01] MEDS: Clopidogrel Bisulfate 75 MG TAB PO SCH (08:27)
[2023-05-01] MEDS ORDERED: REMDESIVIR 200 MG in Sodium Chloride 0.9% 250 ML 210 ML IV SCH (10:45)
[2023-05-01] MEDS: cefTRIAXone\\ROCEPHIN 1 GM in Sodium Chloride 0.9% 100 ML IVPB SCH (12:49)
[2023-05-01] MEDS: Azithromycin 500 MG in Sodium Chloride 0.9% 250 ML 250 ML IVPB SCH (16:25)
[2023-05-01] MEDS: Apixaban 2.5 MG TAB PO SCH (20:01)
[2023-05-01] MEDS: QUEtiapine 25 MG TAB PO SCH (20:01)
[2023-05-01] MEDS: Atorvastatin Calcium 10 MG TAB PO SCH (20:01)
[2023-05-02 04:49] LABS: ALT (SGPT) 20 U/L (8-55); AST (SGOT) 37 U/L (5-34); Albumin 2.6 g/dL (3.4-4.8); Alkaline Phosphatase 61 U/L (40-110); Anion Gap 14 mmol/L (10-20); BUN (Urea Nitrogen) 11 mg/dL (9.8-20.1); Bilirubin, Total 0.7 mg/dL (0.2-1.2); Calc. Creatinine Clearance 45 mL/min (70-130); Calcium 8.7 mg/dL (7.8-10.44); Carbon Dioxide 21 mmol/L (23-31); Chloride 106 mmol/L (98-107); Estimated GFR 73; Globulin 4.2 g/dL (2.4-3.5); Glucose 70 mg/dL (83-110); Potassium 3.6 mmol/L (3.5-5.1); Protein, Total 6.8 g/dL (5.8-8.1); Sodium 137 mmol/L (136-145)
[2023-05-02] MEDS: REMDESIVIR 100 MG in Sodium Chloride 0.9% 250 ML 230 ML IV SCH (09:53)
[2023-05-02] MEDS: Zinc Sulfate 220 MG CAP PO SCH (09:54)
[2023-05-02] MEDS: Ascorbic Acid 500 mg Chewable Tablet PO SCH (09:54)
[2023-05-02] MEDS: Apixaban 2.5 MG TAB PO SCH (09:54)
[2023-05-02] MEDS: Clopidogrel Bisulfate 75 MG TAB PO SCH (09:54)
[2023-05-02] MEDS: ALPRAZolam 0.25 MG TAB PO SCH ×2 (09:55→21:37)
[2023-05-02] MEDS ORDERED: Sodium Chloride 0.9% 1,000 ML IV SCH (17:00)
[2023-05-02] MEDS ORDERED: Electrolyte Replacement Protocol 1 EACH FS SCH (17:00)
[2023-05-02] MEDS: Azithromycin 500 MG in Sodium Chloride 0.9% 250 ML 250 ML IVPB SCH (17:14)
[2023-05-02] MEDS: cefTRIAXone\\ROCEPHIN 1 GM in Sodium Chloride 0.9% 100 ML IVPB SCH (17:14)
[2023-05-02] MEDS ORDERED: Electrolyte Replacement Protocol FS PRN (17:15)
[2023-05-02] MEDS ORDERED: Apixaban 2.5 MG TAB PO SCH (21:30)
[2023-05-02] MEDS: QUEtiapine 25 MG TAB PO SCH (21:37)
[2023-05-02] MEDS: Atorvastatin Calcium 10 MG TAB PO SCH (21:37)
[2023-05-03 05:32] LABS: #Monocytes 0.6 thou/uL (0.11-0.59); #Neutrophils 2.3 thou/uL (1.40-6.50); %Basophils 0.5 % (0.0-1.0); %Eosinophils 0.5 % (0.0-10.0); %Lymphocytes 29.8 % (21.0-51.0); %Monocytes 13.4 % (0.0-10.0); %Neutrophils 55.3 % (42.0-75.0); Hematocrit 38.3 % (36.0-47.0); Hemoglobin 12.4 g/dL (12.0-16.0); Mean Corpuscular HGB CONC 32.4 g/dL (32.0-36.0); Mean Corpuscular Hemoglobin 30.4 pg (27.0-31.0); Mean Corpuscular Volume 93.9 fl (78.0-98.0); Mean Platelet Volume 11.7 fL (7.4-10.4); Platelet Count 162 10x3/uL (130-400); RBC Distribution Width 16.8 % (11.5-14.5); Red Blood Cell (RBC) Count 4.08 mill/uL (4.20-5.40); White Blood Cell (WBC) Count 4.2 10x3/uL (4.8-10.8)
[2023-05-03 06:03] LABS: ALT (SGPT) 22 U/L (8-55); AST (SGOT) 42 U/L (5-34); Albumin 2.7 g/dL (3.4-4.8); Alkaline Phosphatase 62 U/L (40-110); Anion Gap 13 mmol/L (10-20); BUN (Urea Nitrogen) 12 mg/dL (9.8-20.1); Bilirubin, Direct 0.3 mg/dL (0.1-0.3); Bilirubin, Total 0.5 mg/dL (0.2-1.2); Calc. Creatinine Clearance 41 mL/min (70-130); Calcium 9.2 mg/dL (7.8-10.44); Carbon Dioxide 22 mmol/L (23-31); Chloride 107 mmol/L (98-107); Estimated GFR 66; Glucose 58 mg/dL (83-110); Magnesium 1.8 mg/dL (1.6-2.6); Potassium 4.2 mmol/L (3.5-5.1); Protein, Total 7.1 g/dL (5.8-8.1); Sodium 138 mmol/L (136-145)
[2023-05-03] MEDS ORDERED: Dextrose 50% Abboject 50 ML SYRINGE SLOW IVP PRN (07:29)
[2023-05-03] MEDS ORDERED: Dextrose 5% in Water 1,000 ML IV PRN (07:29)
[2023-05-03] MEDS ORDERED: Magnesium 2 GM/50 ML(in water) 2 GM in Premix Bag 1 BAG IVPB SCH (08:00)
[2023-05-03] MEDS: Clopidogrel Bisulfate 75 MG TAB PO SCH (10:09)
[2023-05-03] MEDS: ALPRAZolam 0.25 MG TAB PO SCH ×2 (10:10→21:28)
[2023-05-03] MEDS: Zinc Sulfate 220 MG CAP PO SCH (10:10)
[2023-05-03] MEDS: Apixaban 2.5 MG TAB PO SCH ×2 (10:10→21:29)
[2023-05-03] MEDS: Ascorbic Acid 500 mg Chewable Tablet PO SCH (10:10)
[2023-05-03] MEDS: REMDESIVIR 100 MG in Sodium Chloride 0.9% 250 ML 230 ML IV SCH (11:51)
[2023-05-03] MEDS: cefTRIAXone\\ROCEPHIN 1 GM in Sodium Chloride 0.9% 100 ML IVPB SCH (14:07)
[2023-05-03] MEDS ORDERED: Dextrose 10% in Water 1,000 ML IV SCH (16:45)
[2023-05-03] MEDS: Azithromycin 500 MG in Sodium Chloride 0.9% 250 ML 250 ML IVPB SCH (19:11)
[2023-05-03] MEDS: QUEtiapine 25 MG TAB PO SCH (21:29)
[2023-05-03] MEDS: Atorvastatin Calcium 10 MG TAB PO SCH (21:29)
[2023-05-04 08:07] LABS: Anion Gap 16 mmol/L (10-20); BUN (Urea Nitrogen) 8 mg/dL (9.8-20.1); Calc. Creatinine Clearance 43 mL/min (70-130); Calcium 9.2 mg/dL (7.8-10.44); Carbon Dioxide 19 mmol/L (23-31); Chloride 108 mmol/L (98-107); Estimated GFR 69; Glucose 134 mg/dL (83-110); Magnesium 1.8 mg/dL (1.6-2.6); Potassium 3.6 mmol/L (3.5-5.1); Sodium 139 mmol/L (136-145)
[2023-05-04 08:21] LABS: Thyroid Stimulating Hormone 3.2625 uIU/mL (0.35-4.94)
[2023-05-04] MEDS: Ascorbic Acid 500 mg Chewable Tablet PO SCH (08:34)
[2023-05-04] MEDS: Zinc Sulfate 220 MG CAP PO SCH (08:34)
[2023-05-04] MEDS: Clopidogrel Bisulfate 75 MG TAB PO SCH (08:36)
[2023-05-04] MEDS: Apixaban 2.5 MG TAB PO SCH ×2 (08:36→20:29)
[2023-05-04] MEDS: ALPRAZolam 0.25 MG TAB PO SCH ×2 (08:36→20:29)
[2023-05-04] MEDS ORDERED: Magnesium 2 GM/50 ML(in water) 2 GM in Premix Bag 1 BAG IVPB SCH (09:00)
[2023-05-04] MEDS ORDERED: Cosyntropin 250 MCG VIAL SLOW IVP SCH (10:00)
[2023-05-04] MEDS: Dextrose 10% in Water 1,000 ML IV SCH ×2 (11:01→20:29)
[2023-05-04] MEDS: cefTRIAXone\\ROCEPHIN 1 GM in Sodium Chloride 0.9% 100 ML IVPB SCH (14:05)
[2023-05-04] MEDS: Azithromycin 500 MG in Sodium Chloride 0.9% 250 ML 250 ML IVPB SCH (15:19)
[2023-05-04] MEDS: Atorvastatin Calcium 10 MG TAB PO SCH (20:29)
[2023-05-04] MEDS: QUEtiapine 25 MG TAB PO SCH (20:29)
[2023-05-05 05:32] LABS: Anion Gap 10 mmol/L (10-20); BUN (Urea Nitrogen) 7 mg/dL (9.8-20.1); Calc. Creatinine Clearance 46 mL/min (70-130); Calcium 8.9 mg/dL (7.8-10.44); Carbon Dioxide 25 mmol/L (23-31); Chloride 106 mmol/L (98-107); Estimated GFR 75; Glucose 100 mg/dL (83-110); Magnesium 2.1 mg/dL (1.6-2.6); Potassium 3.5 mmol/L (3.5-5.1); Sodium 137 mmol/L (136-145)
[2023-05-05] MEDS: Dextrose 10% in Water 1,000 ML IV SCH ×2 (05:46→17:36)
[2023-05-05] MEDS ORDERED: Potassium Chloride 20 MEQ TAB PO SCH (08:00)
[2023-05-05] MEDS: Ascorbic Acid 500 mg Chewable Tablet PO SCH (08:02)
[2023-05-05] MEDS: ALPRAZolam 0.25 MG TAB PO SCH ×2 (08:02→21:25)
[2023-05-05] MEDS: Zinc Sulfate 220 MG CAP PO SCH (08:02)
[2023-05-05] MEDS: Apixaban 2.5 MG TAB PO SCH ×2 (08:02→21:25)
[2023-05-05] MEDS: Clopidogrel Bisulfate 75 MG TAB PO SCH (08:02)
[2023-05-05] MEDS: Glucagon 1 MG/ML KIT IM PRN ×2 (09:23→17:20)
[2023-05-05 09:55] LABS: Glucose 108 mg/dL (83-110)
[2023-05-05] MEDS ORDERED: GUAIFENESIN SF SOLN 200 MG/10 ML UDCUP PO PRN (11:53)
[2023-05-05] MEDS: cefTRIAXone\\ROCEPHIN 1 GM in Sodium Chloride 0.9% 100 ML IVPB SCH (13:25)
[2023-05-05] MEDS ORDERED: hydrALAZINE 20 MG/ML VIAL SLOW IVP PRN (16:09)
[2023-05-05] MEDS: Hydrocortisone Sod Succ/PF 100 mg/2 ml Vial IVP SCH (17:29)
[2023-05-05] MEDS: Atorvastatin Calcium 10 MG TAB PO SCH (21:25)
[2023-05-05] MEDS: QUEtiapine 25 MG TAB PO SCH (21:25)
[2023-05-06] MEDS: Hydrocortisone Sod Succ/PF 100 mg/2 ml Vial IVP SCH ×3 (01:59→16:55)
[2023-05-06] MEDS: Dextrose 10% in Water 1,000 ML IV SCH (01:59)
[2023-05-06 07:54] LABS: Anion Gap 12 mmol/L (10-20); BUN (Urea Nitrogen) 8 mg/dL (9.8-20.1); Calc. Creatinine Clearance 43 mL/min (70-130); Calcium 9.4 mg/dL (7.8-10.44); Carbon Dioxide 21 mmol/L (23-31); Chloride 106 mmol/L (98-107); Estimated GFR 70; Glucose 185 mg/dL (83-110); Magnesium 1.9 mg/dL (1.6-2.6); Phosphorus 1.8 mg/dL (2.3-4.7); Potassium 4.3 mmol/L (3.5-5.1); Sodium 135 mmol/L (136-145)
[2023-05-06] MEDS: ALPRAZolam 0.25 MG TAB PO SCH ×2 (08:51→20:43)
[2023-05-06] MEDS: Apixaban 2.5 MG TAB PO SCH ×2 (08:51→20:44)
[2023-05-06] MEDS: Ascorbic Acid 500 mg Chewable Tablet PO SCH (08:51)
[2023-05-06] MEDS: Clopidogrel Bisulfate 75 MG TAB PO SCH (08:51)
[2023-05-06] MEDS: Zinc Sulfate 220 MG CAP PO SCH (08:51)
[2023-05-06] MEDS: PHOS-NAK 1 PKT PACK PO SCH ×2 (08:51→14:59)
[2023-05-06] MEDS: Multivit, Chewable SF 1 TAB PO SCH (08:52)
[2023-05-06] MEDS ORDERED: Magnesium 2 GM/50 ML(in water) 2 GM in Premix Bag 1 BAG IVPB SCH (09:00)
[2023-05-06] MEDS ORDERED: Dextrose 5 % And 0.9 % NaCl 1,000 ML IV SCH ×2 (09:45→18:43)
[2023-05-06] MEDS: Dronabinol 2.5 MG CAP PO SCH (16:56)
[2023-05-06] MEDS: Atorvastatin Calcium 10 MG TAB PO SCH (20:44)
[2023-05-06] MEDS: QUEtiapine 25 MG TAB PO SCH (20:44)
[2023-05-07] MEDS: Hydrocortisone Sod Succ/PF 100 mg/2 ml Vial IVP SCH ×2 (05:06→16:53)
[2023-05-07 06:49] LABS: Anion Gap 15 mmol/L (10-20); BUN (Urea Nitrogen) 13 mg/dL (9.8-20.1); Calc. Creatinine Clearance 43 mL/min (70-130); Calcium 9.7 mg/dL (7.8-10.44); Carbon Dioxide 21 mmol/L (23-31); Chloride 109 mmol/L (98-107); Estimated GFR 70; Glucose 98 mg/dL (83-110); Magnesium 2.1 mg/dL (1.6-2.6); Potassium 4.7 mmol/L (3.5-5.1); Sodium 140 mmol/L (136-145)
[2023-05-07] MEDS: Ascorbic Acid 500 mg Chewable Tablet PO SCH (09:02)
[2023-05-07] MEDS: Zinc Sulfate 220 MG CAP PO SCH (09:02)
[2023-05-07] MEDS: Apixaban 2.5 MG TAB PO SCH ×2 (09:03→20:54)
[2023-05-07] MEDS: ALPRAZolam 0.25 MG TAB PO SCH ×2 (09:03→20:53)
[2023-05-07] MEDS: Clopidogrel Bisulfate 75 MG TAB PO SCH (09:03)
[2023-05-07] MEDS: Multivit, Chewable SF 1 TAB PO SCH (09:04)
[2023-05-07] MEDS: Dronabinol 2.5 MG CAP PO SCH ×2 (10:24→16:54)
[2023-05-07] MEDS: QUEtiapine 25 MG TAB PO SCH (20:55)
[2023-05-07] MEDS: Atorvastatin Calcium 10 MG TAB PO SCH (20:55)
[2023-05-08 04:02] LABS: Anion Gap 11 mmol/L (10-20); BUN (Urea Nitrogen) 16 mg/dL (9.8-20.1); Calc. Creatinine Clearance 39 mL/min (70-130); Calcium 9.5 mg/dL (7.8-10.44); Carbon Dioxide 24 mmol/L (23-31); Chloride 107 mmol/L (98-107); Estimated GFR 61; Glucose 108 mg/dL (83-110); Magnesium 1.9 mg/dL (1.6-2.6); Potassium 4.5 mmol/L (3.5-5.1); Sodium 137 mmol/L (136-145)
[2023-05-08] MEDS ORDERED: Magnesium 2 GM/50 ML(in water) 2 GM in Premix Bag 1 BAG IVPB SCH (04:15)
[2023-05-08] MEDS: Hydrocortisone Sod Succ/PF 100 mg/2 ml Vial IVP SCH ×2 (05:08→18:46)
[2023-05-08] MEDS ORDERED: Hydrocortisone 10 mg Tablet PO SCH ×3 (07:00→16:00)
[2023-05-08] MEDS: Clopidogrel Bisulfate 75 MG TAB PO SCH (09:03)
[2023-05-08] MEDS: Apixaban 2.5 MG TAB PO SCH ×2 (09:03→20:45)
[2023-05-08] MEDS: Multivit, Chewable SF 1 TAB PO SCH (09:03)
[2023-05-08] MEDS: Zinc Sulfate 220 MG CAP PO SCH (09:03)
[2023-05-08] MEDS: ALPRAZolam 0.25 MG TAB PO SCH ×2 (09:03→20:45)
[2023-05-08] MEDS: Dronabinol 2.5 MG CAP PO SCH ×2 (09:03→17:45)
[2023-05-08] MEDS: Ascorbic Acid 500 mg Chewable Tablet PO SCH (09:03)
[2023-05-08] MEDS: QUEtiapine 25 MG TAB PO SCH (20:45)
[2023-05-08] MEDS: Atorvastatin Calcium 10 MG TAB PO SCH (20:45)
[2023-05-09 05:26] LABS: #Monocytes 0.5 thou/uL (0.11-0.59); #Neutrophils 6.5 thou/uL (1.40-6.50); %Basophils 0.1 % (0.0-1.0); %Lymphocytes 16.6 % (21.0-51.0); %Monocytes 5.8 % (0.0-10.0); %Neutrophils 75.4 % (42.0-75.0); Hematocrit 39.8 % (36.0-47.0); Hemoglobin 13.1 g/dL (12.0-16.0); Mean Corpuscular HGB CONC 32.9 g/dL (32.0-36.0); Mean Corpuscular Hemoglobin 30.9 pg (27.0-31.0); Mean Corpuscular Volume 93.9 fl (78.0-98.0); Mean Platelet Volume 10.2 fL (7.4-10.4); Platelet Count 281 10x3/uL (130-400); RBC Distribution Width 17.2 % (11.5-14.5); Red Blood Cell (RBC) Count 4.24 mill/uL (4.20-5.40); White Blood Cell (WBC) Count 8.7 10x3/uL (4.8-10.8)
[2023-05-09 05:55] LABS: Anion Gap 10 mmol/L (10-20); BUN (Urea Nitrogen) 22 mg/dL (9.8-20.1); Calc. Creatinine Clearance 41 mL/min (70-130); Calcium 9.2 mg/dL (7.8-10.44); Carbon Dioxide 23 mmol/L (23-31); Chloride 106 mmol/L (98-107); Estimated GFR 65; Glucose 92 mg/dL (83-110); Magnesium 2.1 mg/dL (1.6-2.6); Potassium 4.3 mmol/L (3.5-5.1); Sodium 135 mmol/L (136-145)
[2023-05-09] MEDS: Zinc Sulfate 220 MG CAP PO SCH (08:48)
[2023-05-09] MEDS: Dronabinol 2.5 MG CAP PO SCH ×2 (08:48→17:40)
[2023-05-09] MEDS: Hydrocortisone 10 mg Tablet PO SCH ×3 (08:48→17:40)
[2023-05-09] MEDS: Ascorbic Acid 500 mg Chewable Tablet PO SCH (08:48)
[2023-05-09] MEDS: Clopidogrel Bisulfate 75 MG TAB PO SCH (08:48)
[2023-05-09] MEDS: Apixaban 2.5 MG TAB PO SCH ×2 (08:48→20:34)
[2023-05-09] MEDS: ALPRAZolam 0.25 MG TAB PO SCH ×2 (08:48→20:34)
[2023-05-09] MEDS: Multivit, Chewable SF 1 TAB PO SCH (12:54)
[2023-05-09] MEDS: QUEtiapine 25 MG TAB PO SCH (20:34)
[2023-05-09] MEDS: Atorvastatin Calcium 10 MG TAB PO SCH (20:34)
[2023-05-10] MEDS: Hydrocortisone 10 mg Tablet PO SCH ×3 (05:55→16:20)
[2023-05-10] MEDS: ALPRAZolam 0.25 MG TAB PO SCH ×2 (07:58→21:13)
[2023-05-10] MEDS: Zinc Sulfate 220 MG CAP PO SCH (07:58)
[2023-05-10] MEDS: Ascorbic Acid 500 mg Chewable Tablet PO SCH (07:58)
[2023-05-10] MEDS: Clopidogrel Bisulfate 75 MG TAB PO SCH (07:59)
[2023-05-10] MEDS: Multivit, Chewable SF 1 TAB PO SCH (07:59)
[2023-05-10] MEDS: Apixaban 2.5 MG TAB PO SCH ×2 (07:59→21:13)
[2023-05-10] MEDS: Dronabinol 2.5 MG CAP PO SCH ×2 (08:25→16:20)
[2023-05-10] MEDS: Atorvastatin Calcium 10 MG TAB PO SCH (21:13)
[2023-05-10] MEDS: QUEtiapine 25 MG TAB PO SCH (21:14)
[2023-05-11] MEDS: ALPRAZolam 0.25 MG TAB PO SCH ×2 (08:54→21:13)
[2023-05-11] MEDS: Hydrocortisone 10 mg Tablet PO SCH ×3 (08:54→17:19)
[2023-05-11] MEDS: Dronabinol 2.5 MG CAP PO SCH ×2 (08:54→17:19)
[2023-05-11] MEDS: Apixaban 2.5 MG TAB PO SCH ×2 (09:50→21:13)
[2023-05-11] MEDS: Ascorbic Acid 500 mg Chewable Tablet PO SCH (09:50)
[2023-05-11] MEDS: Zinc Sulfate 220 MG CAP PO SCH (09:50)
[2023-05-11] MEDS: Clopidogrel Bisulfate 75 MG TAB PO SCH (09:50)
[2023-05-11] MEDS: Multivit, Chewable SF 1 TAB PO SCH (09:50)
[2023-05-11] MEDS: QUEtiapine 25 MG TAB PO SCH (21:13)
[2023-05-11] MEDS: Atorvastatin Calcium 10 MG TAB PO SCH (21:13)
[2023-05-12] MEDS: Apixaban 2.5 MG TAB PO SCH ×2 (09:29→20:25)
[2023-05-12] MEDS: Zinc Sulfate 220 MG CAP PO SCH (09:29)
[2023-05-12] MEDS: Ascorbic Acid 500 mg Chewable Tablet PO SCH (09:29)
[2023-05-12] MEDS: Hydrocortisone 10 mg Tablet PO SCH ×3 (09:29→17:22)
[2023-05-12] MEDS: Clopidogrel Bisulfate 75 MG TAB PO SCH (09:30)
[2023-05-12] MEDS: ALPRAZolam 0.25 MG TAB PO SCH ×2 (09:30→20:26)
[2023-05-12] MEDS: Multivit, Chewable SF 1 TAB PO SCH (09:30)
[2023-05-12] MEDS: Dronabinol 2.5 MG CAP PO SCH ×2 (09:30→17:22)
[2023-05-12] MEDS: Atorvastatin Calcium 10 MG TAB PO SCH (20:27)
[2023-05-12] MEDS: QUEtiapine 25 MG TAB PO SCH (20:27)
[2023-05-13] MEDS: Hydrocortisone 10 mg Tablet PO SCH ×4 (05:28→16:26)
[2023-05-13] MEDS: ALPRAZolam 0.25 MG TAB PO SCH ×2 (08:46→20:12)
[2023-05-13] MEDS: Apixaban 2.5 MG TAB PO SCH ×2 (08:47→20:12)
[2023-05-13] MEDS: Ascorbic Acid 500 mg Chewable Tablet PO SCH (08:47)
[2023-05-13] MEDS: Clopidogrel Bisulfate 75 MG TAB PO SCH (08:47)
[2023-05-13] MEDS: Zinc Sulfate 220 MG CAP PO SCH (08:47)
[2023-05-13] MEDS: Multivit, Chewable SF 1 TAB PO SCH (09:48)
[2023-05-13] MEDS: Dronabinol 2.5 MG CAP PO SCH ×2 (09:48→16:26)
[2023-05-13] MEDS: QUEtiapine 25 MG TAB PO SCH (20:11)
[2023-05-13] MEDS: Atorvastatin Calcium 10 MG TAB PO SCH (20:12)
[2023-05-14] MEDS: Hydrocortisone 10 mg Tablet PO SCH ×3 (10:02→16:48)
[2023-05-14] MEDS: Ascorbic Acid 500 mg Chewable Tablet PO SCH (10:02)
[2023-05-14] MEDS: ALPRAZolam 0.25 MG TAB PO SCH ×2 (10:02→20:02)
[2023-05-14] MEDS: Apixaban 2.5 MG TAB PO SCH ×2 (10:03→20:02)
[2023-05-14] MEDS: Dronabinol 2.5 MG CAP PO SCH ×2 (10:03→16:49)
[2023-05-14] MEDS: Multivit, Chewable SF 1 TAB PO SCH (10:03)
[2023-05-14] MEDS: Zinc Sulfate 220 MG CAP PO SCH (10:03)
[2023-05-14] MEDS: Clopidogrel Bisulfate 75 MG TAB PO SCH (10:03)
[2023-05-14] MEDS: Atorvastatin Calcium 10 MG TAB PO SCH (20:02)
[2023-05-14] MEDS: QUEtiapine 25 MG TAB PO SCH (20:02)
[2023-05-15 05:17] LABS: Hematocrit 39.5 % (36.0-47.0); Hemoglobin 12.6 g/dL (12.0-16.0); Mean Corpuscular HGB CONC 31.9 g/dL (32.0-36.0); Mean Corpuscular Hemoglobin 30.7 pg (27.0-31.0); Mean Corpuscular Volume 96.3 fl (78.0-98.0); Platelet Count 254 10x3/uL (130-400); RBC Distribution Width 18.1 % (11.5-14.5); White Blood Cell (WBC) Count 7.9 10x3/uL (4.8-10.8)
[2023-05-15 05:23] LABS: Hemoglobin A1c 5.7 % (4.0-6.0)
[2023-05-15 05:36] LABS: Anion Gap 9 mmol/L (10-20); BUN (Urea Nitrogen) 20 mg/dL (9.8-20.1); Calc. Creatinine Clearance 42 mL/min (70-130); Calcium 9.1 mg/dL (7.8-10.44); Carbon Dioxide 32 mmol/L (23-31); Chloride 104 mmol/L (98-107); Estimated GFR 67; Glucose 92 mg/dL (83-110); Potassium 4.6 mmol/L (3.5-5.1); Sodium 140 mmol/L (136-145)
[2023-05-15] MEDS: Hydrocortisone 10 mg Tablet PO SCH ×3 (06:06→17:41)
[2023-05-15] MEDS ORDERED: Hydrocortisone 10 mg Tablet PO SCH (08:51)
[2023-05-15] MEDS: Zinc Sulfate 220 MG CAP PO SCH (09:09)
[2023-05-15] MEDS: ALPRAZolam 0.25 MG TAB PO SCH ×2 (09:09→19:38)
[2023-05-15] MEDS: Apixaban 2.5 MG TAB PO SCH ×2 (09:09→19:38)
[2023-05-15] MEDS: Multivit, Chewable SF 1 TAB PO SCH (09:09)
[2023-05-15] MEDS: Ascorbic Acid 500 mg Chewable Tablet PO SCH (09:10)
[2023-05-15] MEDS: Clopidogrel Bisulfate 75 MG TAB PO SCH (09:10)
[2023-05-15] MEDS: Dronabinol 2.5 MG CAP PO SCH ×2 (09:15→17:41)
[2023-05-15] MEDS ORDERED: [UNRECOGNIZED DRUG - OTHER] PO SCH (11:30)
[2023-05-15 12:10] LABS: Glucose 120 mg/dL (83-110)
[2023-05-15] MEDS: Dextrose 30 ML TUBE PO SCH ×4 (17:49→19:38)
[2023-05-15 18:04] LABS: Glucose 148 mg/dL (83-110)
[2023-05-15] MEDS: QUEtiapine 25 MG TAB PO SCH (19:37)
[2023-05-15] MEDS: Atorvastatin Calcium 10 MG TAB PO SCH (19:37)
[2023-05-15 21:50] LABS: Glucose 129 mg/dL (83-110)
[2023-05-16] MEDS: Hydrocortisone 10 mg Tablet PO SCH ×3 (06:09→16:43)
[2023-05-16 06:10] LABS: ALT (SGPT) 30 U/L (8-55); AST (SGOT) 25 U/L (5-34); Albumin 2.5 g/dL (3.4-4.8); Alkaline Phosphatase 58 U/L (40-110); Anion Gap 12 mmol/L (10-20); BUN (Urea Nitrogen) 15 mg/dL (9.8-20.1); Bilirubin, Total 0.7 mg/dL (0.2-1.2); Calc. Creatinine Clearance 42 mL/min (70-130); Calcium 9.3 mg/dL (7.8-10.44); Carbon Dioxide 26 mmol/L (23-31); Chloride 105 mmol/L (98-107); Estimated GFR 67; Globulin 3.9 g/dL (2.4-3.5); Glucose 70 mg/dL (83-110); Potassium 4.5 mmol/L (3.5-5.1); Protein, Total 6.4 g/dL (5.8-8.1); Sodium 138 mmol/L (136-145)
[2023-05-16 07:32] LABS: #Monocytes 0.8 thou/uL (0.11-0.59); #Neutrophils 5.2 thou/uL (1.40-6.50); %Basophils 0.2 % (0.0-1.0); %Eosinophils 0.4 % (0.0-10.0); %Lymphocytes 25.1 % (21.0-51.0); %Monocytes 10.3 % (0.0-10.0); %Neutrophils 63.4 % (42.0-75.0); Hematocrit 40.2 % (36.0-47.0); Mean Corpuscular HGB CONC 32.3 g/dL (32.0-36.0); Mean Corpuscular Hemoglobin 31.1 pg (27.0-31.0); Mean Corpuscular Volume 96.2 fl (78.0-98.0); Mean Platelet Volume 9.8 fL (7.4-10.4); Platelet Count 259 10x3/uL (130-400); RBC Distribution Width 18.2 % (11.5-14.5); Red Blood Cell (RBC) Count 4.18 mill/uL (4.20-5.40); White Blood Cell (WBC) Count 8.1 10x3/uL (4.8-10.8)
[2023-05-16 07:49] LABS: Glucose 71 mg/dL (83-110)
[2023-05-16] MEDS: Dronabinol 2.5 MG CAP PO SCH ×2 (09:03→16:42)
[2023-05-16] MEDS: Apixaban 2.5 MG TAB PO SCH ×2 (09:04→19:57)
[2023-05-16] MEDS: Ascorbic Acid 500 mg Chewable Tablet PO SCH (09:04)
[2023-05-16] MEDS: Multivit, Chewable SF 1 TAB PO SCH (09:04)
[2023-05-16] MEDS: Zinc Sulfate 220 MG CAP PO SCH (09:04)
[2023-05-16] MEDS: Clopidogrel Bisulfate 75 MG TAB PO SCH (09:04)
[2023-05-16] MEDS: Dextrose 30 ML TUBE PO SCH ×6 (09:05→17:19)
[2023-05-16] MEDS: ALPRAZolam 0.25 MG TAB PO SCH ×2 (09:05→19:57)
[2023-05-16 12:46] LABS: Glucose 102 mg/dL (83-110)
[2023-05-16 17:49] LABS: Glucose 101 mg/dL (83-110)
[2023-05-16] MEDS: QUEtiapine 25 MG TAB PO SCH (19:57)
[2023-05-16] MEDS: Atorvastatin Calcium 10 MG TAB PO SCH (19:57)
[2023-05-16 22:22] LABS: Glucose 125 mg/dL (83-110)
[2023-05-17] MEDS: Hydrocortisone 10 mg Tablet PO SCH ×3 (06:31→17:05)
[2023-05-17 08:00] LABS: Glucose 82 mg/dL (83-110)
[2023-05-17] MEDS: Multivit, Chewable SF 1 TAB PO SCH (08:20)
[2023-05-17] MEDS: Dronabinol 2.5 MG CAP PO SCH ×2 (08:20→17:04)
[2023-05-17] MEDS: Clopidogrel Bisulfate 75 MG TAB PO SCH (08:21)
[2023-05-17] MEDS: Apixaban 2.5 MG TAB PO SCH ×2 (08:21→21:07)
[2023-05-17] MEDS: ALPRAZolam 0.25 MG TAB PO SCH ×2 (08:21→21:06)
[2023-05-17] MEDS: Ascorbic Acid 500 mg Chewable Tablet PO SCH (08:21)
[2023-05-17] MEDS: Zinc Sulfate 220 MG CAP PO SCH (08:21)
[2023-05-17] MEDS: Dextrose 30 ML TUBE PO SCH ×6 (08:22→17:08)
[2023-05-17 12:05] LABS: Glucose 100 mg/dL (83-110)
[2023-05-17 17:44] LABS: Glucose 114 mg/dL (83-110)
[2023-05-17] MEDS: QUEtiapine 25 MG TAB PO SCH (21:06)
[2023-05-17] MEDS: Atorvastatin Calcium 10 MG TAB PO SCH (21:07)
[2023-05-17 22:16] LABS: Glucose 102 mg/dL (83-110)
[2023-05-18 07:54] VITALS: TEMP 98.3
[2023-05-18 08:15] LABS: Glucose 75 mg/dL (83-110)
[2023-05-18] MEDS: Hydrocortisone 10 mg Tablet PO SCH ×3 (08:38→16:01)
[2023-05-18] MEDS: Clopidogrel Bisulfate 75 MG TAB PO SCH (08:39)
[2023-05-18] MEDS: ALPRAZolam 0.25 MG TAB PO SCH (08:39)
[2023-05-18] MEDS: Zinc Sulfate 220 MG CAP PO SCH (08:39)
[2023-05-18] MEDS: Multivit, Chewable SF 1 TAB PO SCH (08:39)
[2023-05-18] MEDS: Apixaban 2.5 MG TAB PO SCH (08:39)
[2023-05-18] MEDS: Ascorbic Acid 500 mg Chewable Tablet PO SCH (08:39)
[2023-05-18] MEDS: Dextrose 30 ML TUBE PO SCH ×4 (08:40→15:54)
[2023-05-18] MEDS: Dronabinol 2.5 MG CAP PO SCH ×2 (08:47→16:44)
[2023-05-18 11:57] LABS: Glucose 89 mg/dL (83-110)
[2023-05-18 15:44] VITALS: BP 124/63
== END 2023-05-18 17:10 | DRG 177 ==
LOC: ERS 08:57 → 2NO 15:51 → SURG A 05-08 19:17
PROVIDERS: ADMIT Internal Medicine; ATTEND Family Medicine
PROC: 8E0ZXY6 Isolation (ICD-10-PCS; principal; 2023-04-30)
PROC: XW033E5 Introduction of Remdesivir Anti-infective into Peripheral Vein, Percutaneous Approach, New Technology Group 5 (ICD-10-PCS; 2023-05-01)
DX: U07.1 COVID-19 (principal); G93.41 Metabolic encephalopathy; J12.82 Pneumonia due to coronavirus disease 2019; I48.92 Unspecified atrial flutter; E27.40 Unspecified adrenocortical insufficiency; E44.0 Moderate protein-calorie malnutrition; R64 Cachexia; Z66 Do not resuscitate; Z51.5 Encounter for palliative care; E87.6 Hypokalemia; E78.5 Hyperlipidemia, unspecified; I10 Essential (primary) hypertension; F03.90 Unspecified dementia, unspecified severity, without behavioral disturbance, psychotic disturbance, mood disturbance, and anxiety; I25.10 Atherosclerotic heart disease of native coronary artery without angina pectoris; K21.9 Gastro-esophageal reflux disease without esophagitis; F41.9 Anxiety disorder, unspecified; F32.A Depression, unspecified; I48.91 Unspecified atrial fibrillation; Z91.040 Latex allergy status; Z91.041 Radiographic dye allergy status; Z88.1 Allergy status to other antibiotic agents; Z88.5 Allergy status to narcotic agent; Z88.8 Allergy status to other drugs, medicaments and biological substances; Z88.2 Allergy status to sulfonamides; Z88.0 Allergy status to penicillin; Z79.82 Long term (current) use of aspirin; Z79.899 Other long term (current) drug therapy; Z95.0 Presence of cardiac pacemaker; Z95.5 Presence of coronary angioplasty implant and graft; Z90.710 Acquired absence of both cervix and uterus; Z68.21 Body mass index [BMI] 21.0-21.9, adult; E16.2 Hypoglycemia, unspecified; I49.5 Sick sinus syndrome
CPT/HCPCS: 36415; 36416; 70450; 71045; 72125; 74176; 80048; 80053; 80076; 80400; 81001; 82024; 82088; 82550; 82607; 82947; 83036; 83735; 84100; 84244; 84443; 84484; 84681; 85025; 85027; 85610; 85730; 87040; 87149; 93005; 93306; 94760; 96365; J0248; J0456; J0696; J0834; J1611; J1650; J1720; J3475; J3490; J7042; J7050; J7070; J7999; Q0167

== ENCOUNTER 2023-06-04 16:36 | Inpatient (IN) | payer MEDICARE ==
[2023-06-04] MEDS ORDERED: Acetaminophen 650 MG Suppository PR PRN (19:10)
[2023-06-04] MEDS ORDERED: Bisacodyl 5 MG TAB PO PRN (19:10)
[2023-06-04] MEDS ORDERED: Acetaminophen 325 MG TAB PO PRN (19:10)
[2023-06-04] MEDS ORDERED: Furosemide 40 MG/4 ML VIAL SLOW IVP SCH (20:00)
[2023-06-04] MEDS ORDERED: Electrolyte Replacement Protocol 1 EACH FS SCH (20:00)
[2023-06-04] MEDS ORDERED: Dextrose 5% in Water 1,000 ML IV PRN (20:32)
[2023-06-04] MEDS ORDERED: Glucagon 1 MG/ML KIT IM PRN (20:32)
[2023-06-04] MEDS ORDERED: Dextrose 50% Abboject 50 ML SYRINGE SLOW IVP PRN (20:32)
[2023-06-04] MEDS: QUEtiapine 25 MG TAB PO SCH (20:43)
[2023-06-04] MEDS: Atorvastatin Calcium 10 MG TAB PO SCH (20:43)
[2023-06-04] MEDS: Senokot S 8.6-50 MG TAB PO SCH (20:44)
[2023-06-04] MEDS: Apixaban 2.5 MG TAB PO SCH (20:44)
[2023-06-04] MEDS ORDERED: QUEtiapine 25 MG TAB PO SCH (21:00)
[2023-06-04] MEDS ORDERED: Apixaban 2.5 MG TAB PO SCH (21:00)
[2023-06-04] MEDS ORDERED: hydrALAZINE 25 MG TAB PO SCH (22:45)
[2023-06-05] MEDS ORDERED: Furosemide 20 MG TAB PO SCH (01:15)
[2023-06-05] MEDS: Furosemide 40 MG/4 ML VIAL SLOW IVP SCH ×2 (04:00→15:08)
[2023-06-05 04:51] LABS: #Monocytes 0.7 thou/uL (0.11-0.59); #Neutrophils 3.6 thou/uL (1.40-6.50); %Basophils 0.4 % (0.0-1.0); %Eosinophils 0.5 % (0.0-10.0); %Lymphocytes 21.6 % (21.0-51.0); %Monocytes 12.4 % (0.0-10.0); %Neutrophils 64.9 % (42.0-75.0); Hematocrit 39.8 % (36.0-47.0); Hemoglobin 12.8 g/dL (12.0-16.0); Mean Corpuscular HGB CONC 32.2 g/dL (32.0-36.0); Mean Corpuscular Volume 99.5 fl (78.0-98.0); Platelet Count 160 10x3/uL (130-400); White Blood Cell (WBC) Count 5.6 10x3/uL (4.8-10.8)
[2023-06-05 05:14] LABS: Phosphorus 2.8 mg/dL (2.3-4.7)
[2023-06-05 05:18] LABS: Anion Gap 13 mmol/L (10-20); BUN (Urea Nitrogen) 10 mg/dL (9.8-20.1); Calc. Creatinine Clearance 42 mL/min (70-130); Calcium 9.2 mg/dL (7.8-10.44); Carbon Dioxide 28 mmol/L (23-31); Chloride 106 mmol/L (98-107); Estimated GFR 57; Glucose 74 mg/dL (83-110); Magnesium 2.1 mg/dL (1.6-2.6); Potassium 3.6 mmol/L (3.5-5.1); Sodium 143 mmol/L (136-145)
[2023-06-05] MEDS: Hydrocortisone 10 mg Tablet PO SCH ×3 (07:55→15:29)
[2023-06-05] MEDS: Polyethylene Glycol 3350 17 GM Packet PO SCH (08:00)
[2023-06-05] MEDS: Senokot S 8.6-50 MG TAB PO SCH ×2 (08:00→20:27)
[2023-06-05] MEDS: Apixaban 2.5 MG TAB PO SCH ×2 (08:00→20:23)
[2023-06-05] MEDS: Famotidine 20 MG TAB PO SCH (08:00)
[2023-06-05] MEDS: Dronabinol 2.5 MG CAP PO SCH ×2 (11:37→17:03)
[2023-06-05] MEDS ORDERED: Lisinopril 20 MG TAB PO SCH (12:15)
[2023-06-05] MEDS ORDERED: Spironolactone 25 MG TAB PO SCH (15:00)
[2023-06-05] MEDS: Carvedilol 25 MG TAB PO SCH (17:03)
[2023-06-05] MEDS: QUEtiapine 25 MG TAB PO SCH (20:22)
[2023-06-05] MEDS: Atorvastatin Calcium 10 MG TAB PO SCH (20:22)
[2023-06-05] MEDS ORDERED: hydrALAZINE 25 MG TAB PO SCH (21:00)
[2023-06-06] MEDS: Furosemide 40 MG/4 ML VIAL SLOW IVP SCH (06:21)
[2023-06-06] MEDS: Hydrocortisone 10 mg Tablet PO SCH ×3 (06:31→15:47)
[2023-06-06] MEDS: Senokot S 8.6-50 MG TAB PO SCH ×2 (08:26→21:01)
[2023-06-06] MEDS: Apixaban 2.5 MG TAB PO SCH ×2 (08:26→21:01)
[2023-06-06] MEDS: Lisinopril 20 MG TAB PO SCH (08:26)
[2023-06-06] MEDS: Famotidine 20 MG TAB PO SCH (08:27)
[2023-06-06] MEDS: Polyethylene Glycol 3350 17 GM Packet PO SCH (08:27)
[2023-06-06] MEDS: hydrALAZINE 25 MG TAB PO SCH ×3 (08:27→21:01)
[2023-06-06] MEDS: Carvedilol 25 MG TAB PO SCH ×2 (08:27→17:22)
[2023-06-06] MEDS: Dronabinol 2.5 MG CAP PO SCH ×2 (08:27→15:47)
[2023-06-06] MEDS: Spironolactone 25 MG TAB PO SCH (08:29)
[2023-06-06] MEDS ORDERED: Furosemide 40 MG TAB PO SCH ×2 (10:33→10:45)
[2023-06-06 11:36] LABS: Anion Gap 14 mmol/L (10-20); BUN (Urea Nitrogen) 12 mg/dL (9.8-20.1); Calc. Creatinine Clearance 45 mL/min (70-130); Calcium 9.4 mg/dL (7.8-10.44); Carbon Dioxide 21 mmol/L (23-31); Chloride 106 mmol/L (98-107); Estimated GFR 63; Glucose 94 mg/dL (83-110); Magnesium 2.2 mg/dL (1.6-2.6); Phosphorus 3.1 mg/dL (2.3-4.7); Potassium 3.7 mmol/L (3.5-5.1); Sodium 137 mmol/L (136-145)
[2023-06-06] MEDS: Furosemide 40 MG TAB PO SCH (15:47)
[2023-06-06] MEDS: Atorvastatin Calcium 10 MG TAB PO SCH (21:01)
[2023-06-06] MEDS: QUEtiapine 25 MG TAB PO SCH (21:01)
[2023-06-07] MEDS: Carvedilol 25 MG TAB PO SCH ×2 (08:41→17:37)
[2023-06-07] MEDS: Lisinopril 20 MG TAB PO SCH (08:41)
[2023-06-07] MEDS: Senokot S 8.6-50 MG TAB PO SCH ×2 (08:41→21:09)
[2023-06-07] MEDS: Famotidine 20 MG TAB PO SCH (08:42)
[2023-06-07] MEDS: hydrALAZINE 25 MG TAB PO SCH ×3 (08:42→21:10)
[2023-06-07] MEDS: Hydrocortisone 10 mg Tablet PO SCH ×3 (08:43→17:37)
[2023-06-07] MEDS: Apixaban 2.5 MG TAB PO SCH ×2 (08:43→21:09)
[2023-06-07] MEDS: Furosemide 40 MG TAB PO SCH ×2 (08:43→13:55)
[2023-06-07] MEDS: Spironolactone 25 MG TAB PO SCH (08:44)
[2023-06-07] MEDS ORDERED: FLU VACC QS2023(65UP)/MF59C/PF 60 MCG/0.5 ML SYRINGE IM ONE (09:00)
[2023-06-07] MEDS: Dronabinol 2.5 MG CAP PO SCH ×2 (09:43→17:37)
[2023-06-07] MEDS: Polyethylene Glycol 3350 17 GM Packet PO SCH (09:46)
[2023-06-07] MEDS: Atorvastatin Calcium 10 MG TAB PO SCH (21:09)
[2023-06-07] MEDS: QUEtiapine 25 MG TAB PO SCH (21:09)
[2023-06-08] MEDS: Polyethylene Glycol 3350 17 GM Packet PO SCH (08:50)
[2023-06-08] MEDS: Senokot S 8.6-50 MG TAB PO SCH ×2 (08:51→22:55)
[2023-06-08] MEDS: Famotidine 20 MG TAB PO SCH (08:53)
[2023-06-08] MEDS: Apixaban 2.5 MG TAB PO SCH ×2 (08:53→22:56)
[2023-06-08] MEDS: Furosemide 40 MG TAB PO SCH ×2 (08:53→16:37)
[2023-06-08] MEDS: Carvedilol 25 MG TAB PO SCH ×2 (08:53→16:37)
[2023-06-08] MEDS: Spironolactone 25 MG TAB PO SCH (08:53)
[2023-06-08] MEDS: Lisinopril 20 MG TAB PO SCH (08:53)
[2023-06-08] MEDS: Hydrocortisone 10 mg Tablet PO SCH ×2 (08:53→16:38)
[2023-06-08] MEDS: Dronabinol 2.5 MG CAP PO SCH ×2 (09:53→18:55)
[2023-06-08] MEDS: hydrALAZINE 25 MG TAB PO SCH ×3 (09:54→22:57)
[2023-06-08] MEDS: Atorvastatin Calcium 10 MG TAB PO SCH (22:56)
[2023-06-08] MEDS: QUEtiapine 25 MG TAB PO SCH (22:56)
[2023-06-09 05:09] VITALS: BMI 23.4
[2023-06-09] MEDS: Hydrocortisone 10 mg Tablet PO SCH ×3 (06:23→17:00)
[2023-06-09] MEDS: Spironolactone 25 MG TAB PO SCH (08:33)
[2023-06-09] MEDS: Apixaban 2.5 MG TAB PO SCH ×2 (08:33→22:37)
[2023-06-09] MEDS: Famotidine 20 MG TAB PO SCH (08:33)
[2023-06-09] MEDS: Dronabinol 2.5 MG CAP PO SCH ×2 (08:33→17:00)
[2023-06-09] MEDS: Carvedilol 25 MG TAB PO SCH ×2 (08:33→17:00)
[2023-06-09] MEDS: hydrALAZINE 25 MG TAB PO SCH ×3 (08:33→22:37)
[2023-06-09] MEDS: Furosemide 40 MG TAB PO SCH ×2 (08:33→14:51)
[2023-06-09] MEDS: Polyethylene Glycol 3350 17 GM Packet PO SCH (08:34)
[2023-06-09] MEDS: Senokot S 8.6-50 MG TAB PO SCH ×2 (08:34→22:37)
[2023-06-09] MEDS: Lisinopril 20 MG TAB PO SCH (08:34)
[2023-06-09] MEDS: QUEtiapine 25 MG TAB PO SCH (22:37)
[2023-06-09] MEDS: Atorvastatin Calcium 10 MG TAB PO SCH (22:37)
[2023-06-10 05:43] LABS: #Monocytes 0.7 thou/uL (0.11-0.59); #Neutrophils 5.7 thou/uL (1.40-6.50); %Basophils 0.1 % (0.0-1.0); %Eosinophils 0.1 % (0.0-10.0); %Lymphocytes 20.4 % (21.0-51.0); %Monocytes 8.4 % (0.0-10.0); %Neutrophils 70.6 % (42.0-75.0); Hematocrit 39.9 % (36.0-47.0); Hemoglobin 12.9 g/dL (12.0-16.0); Mean Corpuscular HGB CONC 32.3 g/dL (32.0-36.0); Mean Corpuscular Hemoglobin 31.5 pg (27.0-31.0); Mean Corpuscular Volume 97.6 fl (78.0-98.0); Mean Platelet Volume 10.4 fL (7.4-10.4); Platelet Count 220 10x3/uL (130-400); Red Blood Cell (RBC) Count 4.09 mill/uL (4.20-5.40)
[2023-06-10] MEDS: Hydrocortisone 10 mg Tablet PO SCH ×3 (06:04→15:29)
[2023-06-10 06:10] LABS: Anion Gap 13 mmol/L (10-20); BUN (Urea Nitrogen) 21 mg/dL (9.8-20.1); Calc. Creatinine Clearance 31 mL/min (70-130); Calcium 9.3 mg/dL (7.8-10.44); Carbon Dioxide 27 mmol/L (23-31); Chloride 101 mmol/L (98-107); Estimated GFR 43; Glucose 76 mg/dL (83-110); Potassium 3.7 mmol/L (3.5-5.1); Sodium 137 mmol/L (136-145)
[2023-06-10] MEDS ORDERED: Lisinopril 20 MG TAB PO SCH ×2 (09:00)
[2023-06-10] MEDS: Senokot S 8.6-50 MG TAB PO SCH ×2 (10:34→22:07)
[2023-06-10] MEDS: Furosemide 40 MG TAB PO SCH ×2 (10:34→13:28)
[2023-06-10] MEDS: Dronabinol 2.5 MG CAP PO SCH ×2 (10:34→17:09)
[2023-06-10] MEDS: hydrALAZINE 25 MG TAB PO SCH ×3 (10:35→22:08)
[2023-06-10] MEDS: Famotidine 20 MG TAB PO SCH (10:35)
[2023-06-10] MEDS: Carvedilol 25 MG TAB PO SCH ×2 (10:35→17:09)
[2023-06-10] MEDS: Polyethylene Glycol 3350 17 GM Packet PO SCH (10:36)
[2023-06-10] MEDS: Apixaban 2.5 MG TAB PO SCH ×2 (10:36→22:08)
[2023-06-10] MEDS: Spironolactone 25 MG TAB PO SCH (10:36)
[2023-06-10] MEDS: QUEtiapine 25 MG TAB PO SCH (22:08)
[2023-06-10] MEDS: Atorvastatin Calcium 10 MG TAB PO SCH (22:09)
[2023-06-11 05:45] LABS: #Monocytes 0.6 thou/uL (0.11-0.59); #Neutrophils 4.7 thou/uL (1.40-6.50); %Basophils 0.4 % (0.0-1.0); %Lymphocytes 23.7 % (21.0-51.0); %Monocytes 8.8 % (0.0-10.0); %Neutrophils 66.8 % (42.0-75.0); Hemoglobin 13.5 g/dL (12.0-16.0); Mean Corpuscular HGB CONC 32.1 g/dL (32.0-36.0); Mean Corpuscular Hemoglobin 31.6 pg (27.0-31.0); Mean Corpuscular Volume 98.4 fl (78.0-98.0); Mean Platelet Volume 9.9 fL (7.4-10.4); Platelet Count 199 10x3/uL (130-400); RBC Distribution Width 17.6 % (11.5-14.5); Red Blood Cell (RBC) Count 4.27 mill/uL (4.20-5.40)
[2023-06-11] MEDS: Hydrocortisone 10 mg Tablet PO SCH (05:55)
[2023-06-11 06:11] LABS: Anion Gap 14 mmol/L (10-20); BUN (Urea Nitrogen) 24 mg/dL (9.8-20.1); Calc. Creatinine Clearance 30 mL/min (70-130); Calcium 8.9 mg/dL (7.8-10.44); Carbon Dioxide 25 mmol/L (23-31); Chloride 102 mmol/L (98-107); Estimated GFR 40; Glucose 75 mg/dL (83-110); Potassium 3.5 mmol/L (3.5-5.1); Sodium 137 mmol/L (136-145)
[2023-06-11 07:47] VITALS: BP 124/66; TEMP 97.5
[2023-06-11] MEDS: Dronabinol 2.5 MG CAP PO SCH (08:44)
[2023-06-11] MEDS: Furosemide 40 MG TAB PO SCH (08:45)
[2023-06-11] MEDS: Spironolactone 25 MG TAB PO SCH (08:45)
[2023-06-11] MEDS: Apixaban 2.5 MG TAB PO SCH (08:45)
[2023-06-11] MEDS: hydrALAZINE 25 MG TAB PO SCH (08:45)
[2023-06-11] MEDS: Carvedilol 25 MG TAB PO SCH (08:45)
[2023-06-11] MEDS: Polyethylene Glycol 3350 17 GM Packet PO SCH (08:46)
[2023-06-11] MEDS: Senokot S 8.6-50 MG TAB PO SCH (08:46)
[2023-06-11] MEDS: Famotidine 20 MG TAB PO SCH (08:46)
[2023-06-11] MEDS ORDERED: Lisinopril 20 MG TAB PO SCH (09:00)
[2023-06-11] MEDS ORDERED: Potassium Chloride 20 MEQ TAB PO SCH (10:00)
== END 2023-06-11 09:39 | DRG 291 ==
LOC: 2SW 16:36 → OBSVTOIN 06-05 16:23 → T4-A 06-08 18:25
PROVIDERS: ADMIT Internal Medicine; ATTEND Family Medicine
DX: I11.0 Hypertensive heart disease with heart failure (principal); I50.43 Acute on chronic combined systolic (congestive) and diastolic (congestive) heart failure; I48.19 Other persistent atrial fibrillation; K59.00 Constipation, unspecified; I48.91 Unspecified atrial fibrillation; F03.90 Unspecified dementia, unspecified severity, without behavioral disturbance, psychotic disturbance, mood disturbance, and anxiety; E78.5 Hyperlipidemia, unspecified; Z66 Do not resuscitate; Z88.8 Allergy status to other drugs, medicaments and biological substances; Z88.1 Allergy status to other antibiotic agents; Z88.5 Allergy status to narcotic agent; Z91.040 Latex allergy status; Z88.0 Allergy status to penicillin; Z88.2 Allergy status to sulfonamides; Z79.01 Long term (current) use of anticoagulants; Z79.899 Other long term (current) drug therapy; Z95.0 Presence of cardiac pacemaker; Z95.5 Presence of coronary angioplasty implant and graft; E16.2 Hypoglycemia, unspecified; I25.10 Atherosclerotic heart disease of native coronary artery without angina pectoris
CPT/HCPCS: 36415; 36416; 71045; 80048; 80053; 81001; 83735; 83880; 84100; 84484; 85025; 90471; 90694; 93005; 93798; 96374; G0008; J1940; Q0167